=== PATIENT | female | born 1955 | race Caucasian/White ===

== ENCOUNTER 2016-11-12 12:06 | Inpatient (IN) | payer OTHER ==
--- NOTE | 2016-11-12 13:18 | PDOC ---
History of Present Illness - General History Source: Patient - History of Present Illness Occurred: reports: other Lower Extremity Pain Location: left: foot <SlovenianAj - Last Filed: 11/12/16 15:24> <Anthony Swan - Last Filed: 11/12/16 20:26> - General Chief Complaint: Wound Infection Stated Complaint: POST-OP/ LT FOOT COMPLICATIONS Time Seen by Provider: 11/12/16 12:48 Past History - Past Medical History CVA: Yes (No residual) Diabetes: Yes HTN: Yes Hypercholesterolemia: Yes Liver Disease: Yes (Fatty liver) Thyroid Disease: Yes - Surgical History Appendectomy: Yes - Immunization History Immunization Up to Date: Yes - Psycho/Social/Smoking Cessation Hx Anxiety: No Suicidal Ideation: No Smoking Status: No Smoking History: Never smoked Have you smoked in the past 12 months: No Number of Cigarettes Smoked Daily: 0 Cigars Per Day: 0 Hx Alcohol Use: No Drug/Substance Use Hx: No Substance Use Type: None <Aj Flores - Last Filed: 11/12/16 15:24> <Anthony Swan - Last Filed: 11/12/16 20:26> - Past Medical History Allergies/Adverse Reactions: Allergies Allergy/AdvReac Type Severity Reaction Status Date / Time No Known Drug Allergies Allergy Verified 03/18/16 17:12 Home Medications: Ambulatory Orders Allopurinol 300 mg PO DAILY 01/10/16 Aspirin [Aspirin EC] 81 mg PO DAILY 01/10/16 Furosemide [Lasix -] 20 mg PO DAILY 01/10/16 Lisinopril 5 mg PO DAILY 01/10/16 Metoprolol Tartrate 12.5 mg PO BID 01/10/16 Multivitamins [Multivit ([facility] Formul[facility])] 1 tab PO DAILY 01/10/16 Pravastatin Sodium 20 mg PO DAILY 01/10/16 Oxycodone HCl/Acetaminophen [Percocet 10-325 mg Tablet] 1 each PO QID #20 tablet MDD 4 03/18/16 Acetaminophen [Tylenol .Regular Strength -] 650 mg PO Q6H PRN #0 tablet Docusate Sodium [Colace -] 100 mg PO BID PRN #0 capsule 03/28/16 Gabapentin [Neurontin -] 300 mg PO TID capsule 03/28/16 Insulin Sliding Scale [Novolog Vial Sliding Scale -] 1 vial SQ TIDAC #0 units Levothyroxine [Synthroid -] 100 mcg PO DAILY@0700 tablet 03/28/16 Naproxen [Naprosyn -] 500 mg PO BID tablet 03/28/16 Pantoprazole Sodium [Protonix -] 40 mg PO DAILY tablet.ec 03/28/16 Insulin (Levemir) [Levemir Vial] 25 units SQ ACBK 11/12/16 Review of Systems - Review of Systems Constitutional: No: Chills, Fever, Malaise Integumentary: Yes: Erythema <Aj Floers - Last Filed: 11/12/16 15:24> *Physical Exam - Vital Signs Last Vital Signs Temp Pulse Resp BP Pulse Ox 98.3 F 78 18 116/65 98 11/12/16 12:13 11/12/16 12:13 11/12/16 12:13 11/12/16 12:13 11/12/16 12:13 - Physical Exam General Appearance: Yes: Appropriately Dressed. No: Apparent Distress HEENT: positive: Normal Voice Neck: positive: Supple Respiratory/Chest: negative: Respiratory Distress Extremity: positive: Other (S/po amputation of L 2nd-4th toes w/ ulcer located at site of prior amputation w/surrounding erythema extending into dorsum of foot , hot and tender, no active discharge, pedal pulses intact) Integumentary: positive: Dry, Warm Neurologic: positive: Fully Oriented, Alert, Normal Mood/Affect <jA Flores - Last Filed: 11/12/16 15:24> - Vital Signs Last Vital Signs Temp Pulse Resp BP Pulse Ox 97.8 F 79 20 127/57 97 11/12/16 18:49 11/12/16 18:49 11/12/16 18:49 11/12/16 18:49 11/12/16 17:23 <Anthony Swan - Last Filed: 11/12/16 20:26> ED Treatment Course - LABORATORY CBC & Chemistry Diagram: 11/12/16 13:15 11/12/16 13:15 <Aj Flores - Last Filed: 11/12/16 15:24> - LABORATORY CBC & Chemistry Diagram: 11/12/16 13:15 11/12/16 13:15 - ADDITIONAL ORDERS Additional order review: Laboratory Results 11/12/16 11/12/16 13:21 13:15 Sodium 141 Potassium 4.0 Chloride 104 Carbon Dioxide 27 Anion Gap 10 BUN 30 H D Creatinine 1.5 H D Creat Clearance w eGFR 35.54 Random Glucose 150 H D Calcium 9.2 Total Bilirubin 0.3 D AST 17 D ALT 23 D Alkaline Phosphatase 84 D Total Protein 7.4 Albumin 3.4 D Urine Color Yellow Urine Appearance Slcloudy Urine pH 5.0 Ur Specific [place]lord 1.013 Urine Protein Negative Urine Glucose (UA) Negative Urine Ketones Negative Urine Blood Negative Urine Nitrite Negative Urine Bilirubin Negative Urine Urobilinogen Negative Ur Leukocyte Esterase Trace H Urine RBC 2 Urine WBC 3 Ur Epithelial Cells Few Hyaline Casts 46 Urine Mucus Rare 11/12/16 13:15 RBC 4.58 MCV 66.9 L MCHC 30.5 L RDW 15.6 D MPV 8.7 D Neutrophils % 53.5 Lymphocytes % 36.4 Monocytes % 7.5 D Eosinophils % 2.0 D Basophils % 0.6 - Medications Given in the ED: ED Medications Discontinued Medications Generic Name Dose Route Start Last Admin Trade Name Freq PRN Reason Stop Dose Admin Clindamycin Phosphate 50 mls @ 100 mls/hr 11/12/16 13:21 11/12/16 13:50 Cleocin 600 Mg Premix Ivpb - IVPB 11/12/16 13:50 100 mls/hr ONCE ONE Administration <Anthony Swan - Last Filed: 11/12/16 20:26> Medical Decision Making - Medical Decision Making 11/12/16 13:15 61-year-old female history of hypertension, hypothyroid, DM, septic joint, MRSA , multiple L toe amputations, p/w pain and erythema to left foot near site of previous amputations that has been ongoing for 1 month. Patient states she attempted to see Dr. Butterfield in office but due to insurance issues, was not able to be seen. Denies any fever or chills. Patient states approximately 2 months ago while visiting [place]. Had an infection to left foot and was treated with antibiotics. See exam L foot ulcer/cellulitis No f/c Well evelin and stable in ED Pedal pulses intact -IV abx -labs -admit 11/12/16 13:20 11/12/16 14:47 11/12/16 14:47 Osteo on x-ray. Case discussed with Dr. Knowles who is recommending Dr. Watts of ID and Dr. Butterfield of vascular be consulted. Dr. Lira of ID is currently in ED evaluating patient and states he will place orders 11/12/16 15:24 <Aj Flores - Last Filed: 11/12/16 15:24> - Medical Decision Making 11/12/16 20:25 The patient was seen and evaluated in conjunction with GUILLE Mcallister under my direct supervision, ancillary studies were reviewed. I agree with the plan as outlined by GUILLE Flores . <Anthony Swan - Last Filed: 11/12/16 20:26> *DC/Admit/Observation/Transfer - Discharge Dispostion Admit: Yes <Aj Flores - Last Filed: 11/12/16 15:24> <Anthony Swan - Last Filed: 11/12/16 20:26> Diagnosis at time of Disposition: Cellulitis Qualifiers: Site of cellulitis: extremity Site of cellulitis of extremity: lower extremity Laterality: left Qualified Code(s): L03.116 - Cellulitis of left lower limb Osteomyelitis Qualifiers: Osteomyelitis type: other acute Osteomyelitis location: foot Laterality: left Qualified Code(s): M86.172 - Other acute osteomyelitis, left ankle and foot - Discharge Dispostion Condition at time of disposition: Fair - Referrals
[2016-11-12] MEDS ORDERED: CLINDAMYCIN 600MG PREMIX IVPB 50 ML IVPB ONE ×2 (13:21→13:28)
[2016-11-12 13:38] LABS: BASOPHIL 0.6 % (0-2.0); MCH 20.4 pg (25.7-33.7); MCHC 30.5 g/dl (32.0-36.0); MEAN CELL VOLUME 66.9 fl (80-96); MEAN PLT VOLUME 8.7 fl (7.5-11.1); NEUTROPHILS 53.5 % (42.8-82.8); PLATELET COUNT 283 K/MM3 (134-434); RDW 15.6 % (11.6-15.6); WHITE BLOOD COUNT 6.8 K/mm3 (4.0-10.0)
[2016-11-12 13:55] LABS: ALBUMIN 3.4 g/dl (3.4-5.0); BILIRUBIN,TOTAL 0.3 mg/dL (0.2-1.0); CALCIUM 9.2 mg/dL (8.5-10.1); CREATININE 1.5 mg/dL (0.55-1.02); TOT PROT 7.4 g/dl (6.4-8.2)
--- NOTE | 2016-11-12 14:34 | PDOC ---
*Physical Exam - Vital Signs Last Vital Signs Temp Pulse Resp BP Pulse Ox 98.3 F 78 18 116/65 98 11/12/16 12:13 11/12/16 12:13 11/12/16 12:13 11/12/16 12:13 11/12/16 12:13 ED Treatment Course - LABORATORY CBC & Chemistry Diagram: 11/12/16 13:15 11/12/16 13:15 - ADDITIONAL ORDERS Additional order review: Laboratory Results 11/12/16 13:15 Sodium 141 Potassium 4.0 Chloride 104 Carbon Dioxide 27 Anion Gap 10 BUN 30 H D Creatinine 1.5 H D Creat Clearance w eGFR 35.54 Random Glucose 150 H D Calcium 9.2 Total Bilirubin 0.3 D AST 17 D ALT 23 D Alkaline Phosphatase 84 D Total Protein 7.4 Albumin 3.4 D 11/12/16 13:15 RBC 4.58 MCV 66.9 L MCHC 30.5 L RDW 15.6 D MPV 8.7 D Neutrophils % 53.5 Lymphocytes % 36.4 Monocytes % 7.5 D Eosinophils % 2.0 D Basophils % 0.6 - RADIOLOGY Radiology Studies Ordered: Category Date Time Status CHEST - PA [RAD] Stat Radiology 11/12/16 13:14 Completed FOOT-LEFT [RAD] Stat Radiology 11/12/16 13:13 Taken Medical Decision Making - Medical Decision Making 11/12/16 14:36 Osteo on Xray. Case discussed with Dr. Knowles who is recommending Dr. Watts of ID and Dr. Butterfield of vascular be consulted. *DC/Admit/Observation/Transfer Diagnosis at time of Disposition: Cellulitis Qualifiers: Site of cellulitis: extremity Site of cellulitis of extremity: lower extremity Laterality: left Qualified Code(s): L03.116 - Cellulitis of left lower limb - Discharge Dispostion Condition at time of disposition: Fair Admit: Yes Decision to Admit order Date/Time: Decision to Admit Order Category Date Time Status Decision to Admit to Hospital Routine Admission 11/12/16 14:30 Active - Referrals Referrals: Annelise Knowles MD [Primary Care Provider] - - Patient Instructions - Post Discharge Activity
[2016-11-12] MEDS: PIPERACILLIN/TAZOB 3.375 GM 50 ML IVPB SCH ×2 (15:35→18:35)
--- NOTE | 2016-11-12 15:35 | PN ---
Progress Note (short form) - Note Progress Note: ID Consult dictated Cellulitis L foot Possible osteomyelitis Hx MRSA await c/s ESR CRP Surgical evaluation Empiric zosyn/ vancomycin
[2016-11-12 15:36] LABS: URINE APPEARANCE SLCLOUDY; URINE BILIRUBIN NEGATIVE (NEGATIVE); URINE BLOOD NEGATIVE (NEGATIVE); URINE COLOR YELLOW; URINE GLUCOSE (UA) NEGATIVE (NEGATIVE); URINE KETONE NEGATIVE (NEGATIVE); URINE NITRITE NEGATIVE (NEGATIVE); URINE PROTEIN NEGATIVE (NEGATIVE); URINE UROBILINOGEN NEGATIVE E.U./dl (0.2-1.0)
[2016-11-12 15:37] LABS: URINE LEUK ESTERASE TRACE (NEGATIVE)
[2016-11-12] MEDS ORDERED: VANCOMYCIN 1 GRAM (PRE-DOCKED) 250 ML IVPB ONE (15:42)
[2016-11-12] MEDS ORDERED: PIPERACILLIN/TAZOB 3.375 GM 50 ML IVPB ONE (15:43)
[2016-11-12 15:53] LABS: URINE HYALINE CAST 46 /lpf; URINE MUCUS RARE; URINE RBC 2 /hpf (0-3); URINE WBC 3 /hpf (3-5)
[2016-11-12] MEDS: VANCOMYCIN 1 GRAM (PRE-DOCKED) 250 ML IVPB SCH (16:05)
[2016-11-12 16:31] LABS: ANISOCYTOSIS 1+; HYPOCHROMIA 2+; MICROCYTOSIS 1+; PLATELET ESTIMATE ADEQUATE (NORMAL)
[2016-11-12] MEDS: INSULIN SLIDING SCALE (NOVOLOG) 1 VIAL SQ SCH ×2 (18:00→22:43)
[2016-11-12 18:14] VITALS: BMI 35.2
--- NOTE | 2016-11-12 18:26 | CONS ---
DATE OF CONSULTATION: DATE OF DICTATION: 11/12/2016 INFECTIOUS DISEASE CONSULTATION HISTORY OF PRESENT ILLNESS: The patient is a 61-year-old female evaluated for cellulitis of the left foot, possible osteomyelitis. The patient was seen in the emergency room, history was obtained via slat pickler, as she is Armenian speaking. According to the patient she has had worsening swelling, erythema and pain the left foot for the past several weeks. She had been in [place] in August of 2016 at which time she had sought medical attention was given an oral antibiotic. She now presents with worsening swelling and redness of her left foot. She denies any recent antibiotic therapy. No complaints of fever or chills. The patient was evaluated by our service in February of 2016 at which time she had positive blood cultures for MRSA and what was felt to be a septic arthritis of her right shoulder. She received a long course of IV antibiotic therapy. Previous wound cultures of the left foot have grown pseudomonas and staphylococcus aureus. PAST MEDICAL HISTORY: Positive for diabetes mellitus, diabetic foot ulcers, hypertension, hyperlipidemia, diabetic nephropathy, gouty arthritis. PAST SURGICAL HISTORY: Status post appendectomy. Status post amputation of 2nd, 3rd, and 4th toes of the left foot. ALLERGIES: No known allergies. SOCIAL HISTORY: Lives at home with family members. Nonsmoker. Nondrinker. Recent travel to [place]. SYSTEMS REVIEW: Neurologic: No loss of consciousness, seizure activity, or focal weakness. Cardiac: Negative chest pain or palpitations. Respiratory: Negative cough or sputum production. Gastrointestinal: Negative vomiting or diarrhea. Genitourinary: Negative for urinary tract infection. LABORATORY DATA: White count 6.8, hematocrit 30.6, platelet count 283. BUN 30, creatinine 1.5. PHYSICAL EXAMINATION: General: She is awake and alert. She is not acutely toxic appearing. Vital signs: Temperature 98.3, blood pressure 116/65, pulse 78 regular, respirations 18 per minute. HEENT: Sclerae anicteric. Cardiovascular: Heart sounds S1, S2. Respiratory: Lungs clear. Abdomen: Soft. No tenderness elicited. No mass, rebound, or rigidity. Extremities: Positive for left foot swelling. She is status post amputation of the left 2nd, 3rd, and 4th toes. There is erythema present over the dorsal aspect of the foot, no purulent drainage is noted. No crepitus, fluctuance. No lymphangitic streaking. IMPRESSION: 1. Cellulitis of the left foot. 2. Possible underlying osteomyelitis. 3. History of methicillin resistant Staphylococcus aureus. Await culture results. Obtain sedimentation rate, C-reactive protein. Surgical evaluation. Empiric antibiotic coverage in this patient with a history of MRSA and pseudomonas with vancomycin and Zosyn. Will follow. Thank you for the kind referral. AMBER JUAN M.D. DOUG/[id number]
[2016-11-12] MEDS: DOCUSATE SODIUM 100 MG CAPSULE (FP) PO SCH (22:27)
[2016-11-12] MEDS: METOPROLOL TARTRATE 25 MG TABLET (FP) PO SCH (22:30)
[2016-11-12] MEDS: GABAPENTIN 300 MG CAPSULE (FP) PO SCH (22:30)
[2016-11-12] MEDS: HEPARIN NA (PORCINE) 5,000 UNITS/ML 1ML VIAL SQ SCH (22:31)
[2016-11-12] MEDS: INSULIN DETEMIR 100 UNITS/ML MDV SQ SCH (22:42)
[2016-11-13] MEDS: PIPERACILLIN/TAZOB 3.375 GM 50 ML IVPB SCH ×3 (02:12→17:51)
[2016-11-13] MEDS: VANCOMYCIN 1 GRAM (PRE-DOCKED) 250 ML IVPB SCH ×2 (03:53→15:15)
[2016-11-13] MEDS: GABAPENTIN 300 MG CAPSULE (FP) PO SCH ×3 (06:32→22:38)
[2016-11-13] MEDS: LEVOTHYROXINE NA 100 MCG TABLET (FP) PO SCH (06:32)
[2016-11-13] MEDS: ATORVASTATIN CA 10 MG TABLET (FP) PO SCH (06:32)
[2016-11-13] MEDS: INSULIN SLIDING SCALE (NOVOLOG) 1 VIAL SQ SCH ×4 (06:41→22:42)
[2016-11-13 10:00] LABS: CHOLESTEROL 162 mg/dL (50-200); LDL CHOLESTEROL (ONLY SJRH) 93 mg/dL (5-100)
[2016-11-13] MEDS: ALLOPURINOL 300 MG TABLET (FP) PO SCH (10:11)
[2016-11-13] MEDS: METOPROLOL TARTRATE 25 MG TABLET (FP) PO SCH ×2 (10:11→22:38)
[2016-11-13] MEDS: FUROSEMIDE 20 MG TABLET (FP) PO SCH (10:11)
[2016-11-13] MEDS: LISINOPRIL 10 MG TABLET (FP) PO SCH (10:11)
[2016-11-13] MEDS: PANTOPRAZOLE 40 MG TABLET (FP) PO SCH (10:11)
[2016-11-13] MEDS: ASPIRIN 81 MG CHEWABLE TABLETS PO SCH (10:12)
[2016-11-13] MEDS: HEPARIN NA (PORCINE) 5,000 UNITS/ML 1ML VIAL SQ SCH ×2 (10:12→22:38)
[2016-11-13 10:18] LABS: MCH 20.3 pg (25.7-33.7); MCHC 30.6 g/dl (32.0-36.0); MEAN CELL VOLUME 66.3 fl (80-96); MEAN PLT VOLUME 8.9 fl (7.5-11.1); PLATELET COUNT 311 K/MM3 (134-434); WHITE BLOOD COUNT 5.3 K/mm3 (4.0-10.0)
--- NOTE | 2016-11-13 10:32 | PN ---
Progress Note (short form) - Note Progress Note: Vascular surgery Left foot ulcer. Clean, pink, probes to bone. Palpable DP pulse. Has not come to wound care clinic for 6 months, since she was in [place]. Pt will probably need MRI, to rule out osteo. Will place santyl on the wound. Bernard Butterfield DO
[2016-11-13] MEDS: oxyCODONE HCL 5 MG TABLET PO PRN (10:51)
--- NOTE | 2016-11-13 13:21 | PN ---
Progress Note, Physician History of Present Illness: Awake, alert Non toxic appearing Afebrile Vascular evaluation noted - Current Medication List Current Medications: Active Medications Acetaminophen (Tylenol -) 650 mg PO Q6H PRN PRN Reason: FEVER OR PAIN Allopurinol (Zyloprim -) 300 mg PO DAILY [facility] Last Admin: 11/13/16 10:11 Dose: 300 mg Aspirin (Asa -) 81 mg PO DAILY [facility] Last Admin: 11/13/16 10:12 Dose: 81 mg Atorvastatin Calcium (Lipitor -) 10 mg PO AM [facility] Last Admin: 11/13/16 06:32 Dose: 10 mg Collagenase (Santyl -) 1 applic TP DAILY [facility] Docusate Sodium (Colace -) 300 mg PO HS [facility] Last Admin: 11/12/16 22:27 Dose: 300 mg Furosemide (Lasix -) 20 mg PO DAILY [facility] Last Admin: 11/13/16 10:11 Dose: 20 mg Gabapentin (Neurontin -) 300 mg PO TID [facility] Last Admin: 11/13/16 06:32 Dose: 300 mg Heparin Sodium (Porcine) (Heparin -) 5,000 unit SQ BID [facility] Last Admin: 11/13/16 10:12 Dose: 5,000 unit Vancomycin HCl (Vancomycin (Pre-Docked)) 250 mls @ 166.667 mls/hr IVPB Q12H [facility] Last Admin: 11/13/16 03:53 Dose: 166.667 mls/hr Piperacillin Sod/Tazobactam Sod (Zosyn 3.375gm Ivpb (Pre-Docked)) 50 mls @ 100 mls/hr IVPB Q8H-IV [facility] PRN Reason: Protocol Last Admin: 11/13/16 10:12 Dose: 100 mls/hr Insulin Aspart (Novolog Vial Sliding Scale -) 1 vial SQ ACHS [facility] PRN Reason: Protocol Last Admin: 11/13/16 11:06 Dose: 2 units Insulin Detemir (Levemir Vial) 25 units SQ HS [facility] Last Admin: 11/12/16 22:42 Dose: 25 units Levothyroxine Sodium (Synthroid -) 100 mcg PO DAILY@0700 [facility] Last Admin: 11/13/16 06:32 Dose: 100 mcg Lisinopril (Prinivil) 10 mg PO DAILY [facility] Last Admin: 11/13/16 10:11 Dose: 10 mg Metoprolol Tartrate (Lopressor -) 12.5 mg PO BID [facility] Last Admin: 11/13/16 10:11 Dose: 12.5 mg Oxycodone HCl (Roxicodone -) 5 mg PO Q6H PRN PRN Reason: PAIN Last Admin: 11/13/16 10:51 Dose: 5 mg Pantoprazole Sodium (Protonix -) 40 mg PO DAILY [facility] Last Admin: 11/13/16 10:11 Dose: 40 mg - Objective Vital Signs: Vital Signs Temperature 97.8 F 11/13/16 08:13 Pulse Rate 69 11/13/16 08:13 Respiratory Rate 20 11/13/16 08:13 Blood Pressure 104/60 11/13/16 08:13 O2 Sat by Pulse Oximetry (%) 97 11/13/16 09:00 Constitutional: Yes: No Distress Eyes: Yes: Conjunctiva Clear Cardiovascular: Yes: Regular Rate and Rhythm, S1, S2 Respiratory: Yes: CTA Bilaterally Gastrointestinal: Yes: Normal Bowel Sounds, Soft. No: Tenderness Extremities: Yes: Other (decreased erythema, foot + ulceration which probes to bone No expressible pus) Labs: CBC, BMP 11/13/16 07:30 Assessment/Plan Cellulitis/ infected foot ulcer/ probable osteomyelitis Hx MRSA bacteremia/ septic arthritis of shoulder Await cultures Continue empiric zosyn/ vancomycin
[2016-11-13] MEDS: COLLAGENASE CLOSTRIDIUM HIST. 30 GRAMS TUBE TP SCH (14:54)
--- NOTE | 2016-11-13 15:22 | HP ---
Admitting History and Physical - Primary Care Physician PCP: Annelise Knowles - Admission Chief Complaint: LEFT LOWER EXTREMITY INFECTION History of Present Illness: HISTORY OF DMII, DIABETIC NEUROPATHY, DIABETIC RETINOPATHY, HTN, CHRONIC WOUND INFECTION HAS NOT BEEN TO WOUND CENTER FOR OVER 6 MONTHS. LEFT FOOT IS PAINFULA AND RED WITH DISCHARGE History Source: Patient - Past Medical History Cardiovascular: Yes: HTN ...: No Rheumatology: Yes: Gout Endocrine: Yes: Diabetes Mellitus - Smoking History Smoking history: Never smoked Have you smoked in the past 12 months: No Aproximately how many cigarettes per day: 0 - Alcohol/Substance Use Hx Alcohol Use: No Home Medications - Allergies Allergies/Adverse Reactions: Allergies Allergy/AdvReac Type Severity Reaction Status Date / Time No Known Drug Allergies Allergy Verified 03/18/16 17:12 - Home Medications Home Medications: Ambulatory Orders Allopurinol 300 mg PO DAILY 01/10/16 Aspirin [Aspirin EC] 81 mg PO DAILY 01/10/16 Furosemide [Lasix -] 20 mg PO DAILY 01/10/16 Lisinopril 5 mg PO DAILY 01/10/16 Metoprolol Tartrate 12.5 mg PO BID 01/10/16 Multivitamins [Multivit ([facility] Formul[facility])] 1 tab PO DAILY 01/10/16 Pravastatin Sodium 20 mg PO DAILY 01/10/16 Oxycodone HCl/Acetaminophen [Percocet 10-325 mg Tablet] 1 each PO QID #20 tablet MDD 4 03/18/16 Acetaminophen [Tylenol .Regular Strength -] 650 mg PO Q6H PRN #0 tablet Docusate Sodium [Colace -] 100 mg PO BID PRN #0 capsule 03/28/16 Gabapentin [Neurontin -] 300 mg PO TID capsule 03/28/16 Insulin Sliding Scale [Novolog Vial Sliding Scale -] 1 vial SQ TIDAC #0 units Levothyroxine [Synthroid -] 100 mcg PO DAILY@0700 tablet 03/28/16 Naproxen [Naprosyn -] 500 mg PO BID tablet 03/28/16 Pantoprazole Sodium [Protonix -] 40 mg PO DAILY tablet.ec 03/28/16 Insulin (Levemir) [Levemir Vial] 25 units SQ ACBK 11/12/16 Review of Systems - Review of Systems Constitutional: reports: Weakness Eyes: reports: No Symptoms HENT: reports: No Symptoms Neck: reports: No Symptoms Cardiovascular: reports: No Symptoms Respiratory: reports: No Symptoms Gastrointestinal: reports: No Symptoms Genitourinary: reports: No Symptoms Musculoskeletal: reports: Decreased ROM, Joint Swelling, Muscle Pain Integumentary: reports: Erythema, Wound Neurological: reports: Pre-Existing Deficit, Other Endocrine: reports: Other Hematology/Lymphatic: reports: No Symptoms Psychiatric: reports: No Symptoms Physical Examination Vital Signs: Vital Signs Temperature 97.8 F 11/13/16 15:10 Pulse Rate 69 11/13/16 15:10 Respiratory Rate 18 11/13/16 15:10 Blood Pressure 118/65 11/13/16 15:10 O2 Sat by Pulse Oximetry (%) 97 11/13/16 09:00 Constitutional: Yes: Mild Distress Eyes: Yes: WNL HENT: Yes: WNL Neck: Yes: WNL Cardiovascular: Yes: WNL Respiratory: Yes: WNL Gastrointestinal: Yes: WNL Renal/: Yes: WNL Musculoskeletal: Yes: Joint Swelling, Muscle Weakness Extremities: Yes: Amputation, Deformity, Erythema Edema: Yes Edema: LLE: Trace, RLE: Trace Peripheral Pulses WNL: Yes Integumentary: Yes: Erythema, Pressure Ulcer, Skin Tear, Venous Stasis Changes Wound/Incision: Yes: Dressing Dry and Intact, Unapproximated Neurological: Yes: Pre-Existing Deficit ...Motor Strength: LLE Psychiatric: Yes: WNL Labs: CBC, BMP 11/13/16 07:30 Problem List - Problems (1) Cellulitis Code(s): L03.90 - CELLULITIS, UNSPECIFIED Qualifiers: Site of cellulitis: extremity Site of cellulitis of extremity: lower extremity Laterality: left Qualified Code(s): L03.116 - Cellulitis of left lower limb (2) Osteomyelitis Code(s): M86.9 - OSTEOMYELITIS, UNSPECIFIED Qualifiers: Osteomyelitis type: other acute Osteomyelitis location: foot Laterality: left Qualified Code(s): M86.172 - Other acute osteomyelitis, left ankle and foot (3) DM2 (diabetes mellitus, type 2) Code(s): E11.9 - TYPE 2 DIABETES MELLITUS WITHOUT COMPLICATIONS Qualifiers: Diabetes mellitus complication status: with neurologic complications Diabetes mellitus complication detail: with polyneuropathy Diabetes mellitus fci insulin use: with fci use Qualified Code(s): E11.42 - Type 2 diabetes mellitus with diabetic polyneuropathy; Z79.4 - care home (current) use of insulin (4) HTN (hypertension) Code(s): I10 - ESSENTIAL (PRIMARY) HYPERTENSION Assessment/Plan IV ABX , ID CONSULT VASC SX EVAL MRI FOOT ESR HIGH TIGHT DIABETIC CONTROL DVT PROPHYLAXIS
[2016-11-13] MEDS: DOCUSATE SODIUM 100 MG CAPSULE (FP) PO SCH (22:37)
[2016-11-13] MEDS: INSULIN DETEMIR 100 UNITS/ML MDV SQ SCH (22:41)
[2016-11-14] MEDS: PIPERACILLIN/TAZOB 3.375 GM 50 ML IVPB SCH ×3 (02:03→17:33)
[2016-11-14] MEDS: VANCOMYCIN 1 GRAM (PRE-DOCKED) 250 ML IVPB SCH ×2 (03:06→15:56)
[2016-11-14] MEDS: GABAPENTIN 300 MG CAPSULE (FP) PO SCH ×3 (06:50→22:22)
[2016-11-14] MEDS: ATORVASTATIN CA 10 MG TABLET (FP) PO SCH (06:50)
[2016-11-14] MEDS: LEVOTHYROXINE NA 100 MCG TABLET (FP) PO SCH (06:50)
[2016-11-14] MEDS: INSULIN SLIDING SCALE (NOVOLOG) 1 VIAL SQ SCH ×4 (06:51→22:19)
[2016-11-14] MEDS: HEPARIN NA (PORCINE) 5,000 UNITS/ML 1ML VIAL SQ SCH ×2 (10:20→22:22)
[2016-11-14] MEDS: METOPROLOL TARTRATE 25 MG TABLET (FP) PO SCH ×2 (10:20→22:22)
[2016-11-14] MEDS: FUROSEMIDE 20 MG TABLET (FP) PO SCH (10:20)
[2016-11-14] MEDS: ALLOPURINOL 300 MG TABLET (FP) PO SCH (10:21)
[2016-11-14] MEDS: LISINOPRIL 10 MG TABLET (FP) PO SCH (10:21)
[2016-11-14] MEDS: PANTOPRAZOLE 40 MG TABLET (FP) PO SCH (10:21)
[2016-11-14] MEDS: ASPIRIN 81 MG CHEWABLE TABLETS PO SCH (10:22)
[2016-11-14] MEDS: COLLAGENASE CLOSTRIDIUM HIST. 30 GRAMS TUBE TP SCH (10:26)
--- NOTE | 2016-11-14 10:37 | PN ---
Progress Note, Physician Chief Complaint: AWAKE ALERT NOTIFIED HER OF + MRI LOWER LEFT LEG WITH ACUTE OSTEOMYELITIS - Current Medication List Current Medications: Active Medications Acetaminophen (Tylenol -) 650 mg PO Q6H PRN PRN Reason: FEVER OR PAIN Allopurinol (Zyloprim -) 300 mg PO DAILY [facility] Last Admin: 11/14/16 10:21 Dose: 300 mg Aspirin (Asa -) 81 mg PO DAILY [facility] Last Admin: 11/14/16 10:22 Dose: 81 mg Atorvastatin Calcium (Lipitor -) 10 mg PO AM [facility] Last Admin: 11/14/16 06:50 Dose: 10 mg Collagenase (Santyl -) 1 applic TP DAILY [facility] Last Admin: 11/14/16 10:26 Dose: 1 grams Docusate Sodium (Colace -) 300 mg PO HS [facility] Last Admin: 11/13/16 22:37 Dose: 300 mg Furosemide (Lasix -) 20 mg PO DAILY [facility] Last Admin: 11/14/16 10:20 Dose: 20 mg Gabapentin (Neurontin -) 300 mg PO TID [facility] Last Admin: 11/14/16 06:50 Dose: 300 mg Heparin Sodium (Porcine) (Heparin -) 5,000 unit SQ BID [facility] Last Admin: 11/14/16 10:20 Dose: 5,000 unit Vancomycin HCl (Vancomycin (Pre-Docked)) 250 mls @ 166.667 mls/hr IVPB Q12H [facility] Last Admin: 11/14/16 03:06 Dose: 166.667 mls/hr Piperacillin Sod/Tazobactam Sod (Zosyn 3.375gm Ivpb (Pre-Docked)) 50 mls @ 100 mls/hr IVPB Q8H-IV [facility] PRN Reason: Protocol Last Admin: 11/14/16 10:21 Dose: 100 mls/hr Insulin Aspart (Novolog Vial Sliding Scale -) 1 vial SQ ACHS [facility] PRN Reason: Protocol Last Admin: 11/14/16 06:51 Dose: 4 units Insulin Detemir (Levemir Vial) 25 units SQ HS [facility] Last Admin: 11/13/16 22:41 Dose: 25 units Levothyroxine Sodium (Synthroid -) 100 mcg PO DAILY@0700 [facility] Last Admin: 11/14/16 06:50 Dose: 100 mcg Metoprolol Tartrate (Lopressor -) 12.5 mg PO BID [facility] Last Admin: 11/14/16 10:20 Dose: Not Given Oxycodone HCl (Roxicodone -) 5 mg PO Q6H PRN PRN Reason: PAIN Last Admin: 11/13/16 10:51 Dose: 5 mg Pantoprazole Sodium (Protonix -) 40 mg PO DAILY [facility] Last Admin: 11/14/16 10:21 Dose: 40 mg - Objective Vital Signs: Vital Signs Temperature 97.6 F 11/14/16 06:00 Pulse Rate 74 11/14/16 06:00 Respiratory Rate 20 11/14/16 06:00 Blood Pressure 99/61 11/14/16 06:00 O2 Sat by Pulse Oximetry (%) 97 11/13/16 21:00 Constitutional: Yes: Mild Distress Eyes: Yes: WNL HENT: Yes: WNL Neck: Yes: WNL Cardiovascular: Yes: WNL Respiratory: Yes: WNL Gastrointestinal: Yes: WNL Genitourinary: Yes: WNL Musculoskeletal: Yes: Joint Swelling, Muscle Pain Extremities: Yes: Deformity Edema: Yes Edema: LLE: Trace, RLE: Trace Peripheral Pulses WNL: Yes Integumentary: Yes: Pressure Ulcer, Venous Stasis Changes, Other Wound/Incision: Yes: Dressing Dry and Intact, Unapproximated Neurological: Yes: Numbness, Pre-Existing Deficit ...Motor Strength: LLE Labs: CBC, BMP 11/13/16 07:30 Problem List - Problems (1) Cellulitis Code(s): L03.90 - CELLULITIS, UNSPECIFIED Qualifiers: Site of cellulitis: extremity Site of cellulitis of extremity: lower extremity Laterality: left Qualified Code(s): L03.116 - Cellulitis of left lower limb (2) Osteomyelitis Code(s): M86.9 - OSTEOMYELITIS, UNSPECIFIED Qualifiers: Osteomyelitis type: other acute Osteomyelitis location: foot Laterality: left Qualified Code(s): M86.172 - Other acute osteomyelitis, left ankle and foot (3) DM2 (diabetes mellitus, type 2) Code(s): E11.9 - TYPE 2 DIABETES MELLITUS WITHOUT COMPLICATIONS Qualifiers: Diabetes mellitus complication status: with neurologic complications Diabetes mellitus complication detail: with polyneuropathy Diabetes mellitus penitentiary insulin use: with penitentiary use Qualified Code(s): E11.42 - Type 2 diabetes mellitus with diabetic polyneuropathy; Z79.4 - jail (current) use of insulin (4) HTN (hypertension) Code(s): I10 - ESSENTIAL (PRIMARY) HYPERTENSION Assessment/Plan MRI POSITIVE OSTEOMYELITIS IV ABX PER ID MAY NEED PICC LINE WITH LONG-TERM ABX DVT PROPHYLAXIS OOB TO CHAIR TIGHT GLYCEMIC CONTROL CHANGE LISINOPRIL FROM 10MG TO 2.5MG LOW BP
--- NOTE | 2016-11-14 11:01 | PN ---
Progress Note, Physician History of Present Illness: No c/o foot pain No c/o fever/ chills MRI c/w osteomyelitis - Current Medication List Current Medications: Active Medications Acetaminophen (Tylenol -) 650 mg PO Q6H PRN PRN Reason: FEVER OR PAIN Allopurinol (Zyloprim -) 300 mg PO DAILY [facility] Last Admin: 11/14/16 10:21 Dose: 300 mg Aspirin (Asa -) 81 mg PO DAILY [facility] Last Admin: 11/14/16 10:22 Dose: 81 mg Atorvastatin Calcium (Lipitor -) 10 mg PO AM [facility] Last Admin: 11/14/16 06:50 Dose: 10 mg Collagenase (Santyl -) 1 applic TP DAILY [facility] Last Admin: 11/14/16 10:26 Dose: 1 grams Docusate Sodium (Colace -) 300 mg PO HS [facility] Last Admin: 11/13/16 22:37 Dose: 300 mg Furosemide (Lasix -) 20 mg PO DAILY [facility] Last Admin: 11/14/16 10:20 Dose: 20 mg Gabapentin (Neurontin -) 300 mg PO TID [facility] Last Admin: 11/14/16 06:50 Dose: 300 mg Heparin Sodium (Porcine) (Heparin -) 5,000 unit SQ BID [facility] Last Admin: 11/14/16 10:20 Dose: 5,000 unit Vancomycin HCl (Vancomycin (Pre-Docked)) 250 mls @ 166.667 mls/hr IVPB Q12H [facility] Last Admin: 11/14/16 03:06 Dose: 166.667 mls/hr Piperacillin Sod/Tazobactam Sod (Zosyn 3.375gm Ivpb (Pre-Docked)) 50 mls @ 100 mls/hr IVPB Q8H-IV [facility] PRN Reason: Protocol Last Admin: 11/14/16 10:21 Dose: 100 mls/hr Insulin Aspart (Novolog Vial Sliding Scale -) 1 vial SQ ACHS [facility] PRN Reason: Protocol Last Admin: 11/14/16 06:51 Dose: 4 units Insulin Detemir (Levemir Vial) 25 units SQ HS [facility] Last Admin: 11/13/16 22:41 Dose: 25 units Levothyroxine Sodium (Synthroid -) 100 mcg PO DAILY@0700 [facility] Last Admin: 11/14/16 06:50 Dose: 100 mcg Lisinopril (Prinivil) 2.5 mg PO DAILY [facility] Metoprolol Tartrate (Lopressor -) 12.5 mg PO BID [facility] Last Admin: 11/14/16 10:20 Dose: Not Given Oxycodone HCl (Roxicodone -) 5 mg PO Q6H PRN PRN Reason: PAIN Last Admin: 11/13/16 10:51 Dose: 5 mg Pantoprazole Sodium (Protonix -) 40 mg PO DAILY [facility] Last Admin: 11/14/16 10:21 Dose: 40 mg - Objective Vital Signs: Vital Signs Temperature 97.6 F 11/14/16 06:00 Pulse Rate 74 11/14/16 06:00 Respiratory Rate 20 11/14/16 06:00 Blood Pressure 99/61 11/14/16 06:00 O2 Sat by Pulse Oximetry (%) 97 11/13/16 21:00 Constitutional: Yes: No Distress Eyes: Yes: Conjunctiva Clear Cardiovascular: Yes: Regular Rate and Rhythm, S1, S2 Respiratory: Yes: CTA Bilaterally Gastrointestinal: Yes: Normal Bowel Sounds, Soft. No: Tenderness Extremities: Yes: Other (erythema of foot resolved + distal ulceration no drainage) Labs: CBC, BMP 11/13/16 07:30 Assessment/Plan Cellulitis/ infected foot ulcer/ osteomyelitis 2nd MT Hx MRSA bacteremia/ septic arthritis of shoulder Await final culture results Continue empiric zosyn/ vancomycin
[2016-11-14] MEDS: DOCUSATE SODIUM 100 MG CAPSULE (FP) PO SCH (22:13)
[2016-11-14] MEDS: INSULIN DETEMIR 100 UNITS/ML MDV SQ SCH (22:21)
[2016-11-14] MEDS: ACETAMINOPHEN 325 MG TABLET (FP) PO PRN (22:23)
[2016-11-15] MEDS: PIPERACILLIN/TAZOB 3.375 GM 50 ML IVPB SCH ×2 (02:01→10:22)
[2016-11-15] MEDS: VANCOMYCIN 1 GRAM (PRE-DOCKED) 250 ML IVPB SCH (03:37)
[2016-11-15] MEDS: GABAPENTIN 300 MG CAPSULE (FP) PO SCH ×3 (05:52→22:22)
[2016-11-15] MEDS: INSULIN SLIDING SCALE (NOVOLOG) 1 VIAL SQ SCH ×4 (06:05→22:25)
[2016-11-15] MEDS: LEVOTHYROXINE NA 100 MCG TABLET (FP) PO SCH (06:08)
[2016-11-15] MEDS: ATORVASTATIN CA 10 MG TABLET (FP) PO SCH (06:09)
--- NOTE | 2016-11-15 10:15 | PN ---
Progress Note, Physician Chief Complaint: AWAKE ALERT C/O DIZZINESS/LIGHT HEADEDNESS DENIES FALLS NO PAIN - Current Medication List Current Medications: Active Medications Acetaminophen (Tylenol -) 650 mg PO Q6H PRN PRN Reason: FEVER OR PAIN Last Admin: 11/14/16 22:23 Dose: 650 mg Allopurinol (Zyloprim -) 300 mg PO DAILY [facility] Last Admin: 11/14/16 10:21 Dose: 300 mg Aspirin (Asa -) 81 mg PO DAILY [facility] Last Admin: 11/14/16 10:22 Dose: 81 mg Atorvastatin Calcium (Lipitor -) 10 mg PO AM [facility] Last Admin: 11/15/16 06:09 Dose: 10 mg Collagenase (Santyl -) 1 applic TP DAILY [facility] Last Admin: 11/14/16 10:26 Dose: 1 grams Docusate Sodium (Colace -) 300 mg PO HS [facility] Last Admin: 11/14/16 22:13 Dose: Not Given Furosemide (Lasix -) 20 mg PO DAILY [facility] Last Admin: 11/14/16 10:20 Dose: 20 mg Gabapentin (Neurontin -) 300 mg PO TID [facility] Last Admin: 11/15/16 05:52 Dose: 300 mg Heparin Sodium (Porcine) (Heparin -) 5,000 unit SQ BID [facility] Last Admin: 11/14/16 22:22 Dose: 5,000 unit Vancomycin HCl (Vancomycin (Pre-Docked)) 250 mls @ 166.667 mls/hr IVPB Q12H [facility] Last Admin: 11/15/16 03:37 Dose: 166.667 mls/hr Piperacillin Sod/Tazobactam Sod (Zosyn 3.375gm Ivpb (Pre-Docked)) 50 mls @ 100 mls/hr IVPB Q8H-IV [facility] PRN Reason: Protocol Last Admin: 11/15/16 02:01 Dose: 100 mls/hr Insulin Aspart (Novolog Vial Sliding Scale -) 1 vial SQ ACHS [facility] PRN Reason: Protocol Last Admin: 11/15/16 06:05 Dose: Not Given Insulin Detemir (Levemir Vial) 25 units SQ HS [facility] Last Admin: 11/14/16 22:21 Dose: 25 units Levothyroxine Sodium (Synthroid -) 100 mcg PO DAILY@0700 [facility] Last Admin: 11/15/16 06:08 Dose: 100 mcg Lisinopril (Prinivil) 2.5 mg PO DAILY [facility] Metoprolol Tartrate (Lopressor -) 12.5 mg PO BID [facility] Last Admin: 11/14/16 22:22 Dose: 12.5 mg Oxycodone HCl (Roxicodone -) 5 mg PO Q6H PRN PRN Reason: PAIN Last Admin: 11/13/16 10:51 Dose: 5 mg Pantoprazole Sodium (Protonix -) 40 mg PO DAILY [facility] Last Admin: 11/14/16 10:21 Dose: 40 mg - Objective Vital Signs: Vital Signs Temperature 98.6 F 11/15/16 05:51 Pulse Rate 75 11/15/16 05:51 Respiratory Rate 20 11/15/16 05:51 Blood Pressure 107/62 11/15/16 05:51 O2 Sat by Pulse Oximetry (%) 100 11/14/16 21:00 Constitutional: Yes: Mild Distress Eyes: Yes: WNL HENT: Yes: WNL Neck: Yes: WNL Cardiovascular: Yes: WNL Respiratory: Yes: WNL Gastrointestinal: Yes: WNL Genitourinary: Yes: WNL Musculoskeletal: Yes: Back Pain Extremities: Yes: WNL, Deformity Edema: Yes Peripheral Pulses WNL: Yes Integumentary: Yes: Pressure Ulcer, Rash Wound/Incision: Yes: Dressing Dry and Intact, Unapproximated Neurological: Yes: Pre-Existing Deficit, Unsteady Gait ...Motor Strength: LLE, RLE Psychiatric: Yes: Other Labs: CBC, BMP 11/13/16 07:30 Problem List - Problems (1) Cellulitis Code(s): L03.90 - CELLULITIS, UNSPECIFIED Qualifiers: Site of cellulitis: extremity Site of cellulitis of extremity: lower extremity Laterality: left Qualified Code(s): L03.116 - Cellulitis of left lower limb (2) Osteomyelitis Code(s): M86.9 - OSTEOMYELITIS, UNSPECIFIED Qualifiers: Osteomyelitis type: other acute Osteomyelitis location: foot Laterality: left Qualified Code(s): M86.172 - Other acute osteomyelitis, left ankle and foot (3) DM2 (diabetes mellitus, type 2) Code(s): E11.9 - TYPE 2 DIABETES MELLITUS WITHOUT COMPLICATIONS Qualifiers: Diabetes mellitus complication status: with neurologic complications Diabetes mellitus complication detail: with polyneuropathy 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
[2016-11-15] MEDS: FUROSEMIDE 20 MG TABLET (FP) PO SCH (10:21)
[2016-11-15] MEDS: ASPIRIN 81 MG CHEWABLE TABLETS PO SCH (10:21)
[2016-11-15] MEDS: PANTOPRAZOLE 40 MG TABLET (FP) PO SCH (10:21)
[2016-11-15] MEDS: ALLOPURINOL 300 MG TABLET (FP) PO SCH (10:21)
[2016-11-15] MEDS: HEPARIN NA (PORCINE) 5,000 UNITS/ML 1ML VIAL SQ SCH ×2 (10:21→22:24)
[2016-11-15] MEDS: LISINOPRIL 5 MG TABLET (FP) PO SCH (10:22)
[2016-11-15] MEDS: METOPROLOL TARTRATE 25 MG TABLET (FP) PO SCH ×2 (10:22→22:21)
[2016-11-15] MEDS: COLLAGENASE CLOSTRIDIUM HIST. 30 GRAMS TUBE TP SCH (10:22)
[2016-11-15 11:09] LABS: MCH 20.2 pg (25.7-33.7); MCHC 30.5 g/dl (32.0-36.0); MEAN CELL VOLUME 66.3 fl (80-96); MEAN PLT VOLUME 8.5 fl (7.5-11.1); PLATELET COUNT 344 K/MM3 (134-434); RDW 15.7 % (11.6-15.6); WHITE BLOOD COUNT 5.3 K/mm3 (4.0-10.0)
[2016-11-15 11:33] LABS: BILIRUBIN,TOTAL 0.3 mg/dL (0.2-1.0); CREATININE 1.3 mg/dL (0.55-1.02); TOT PROT 6.7 g/dl (6.4-8.2)
--- NOTE | 2016-11-15 12:17 | PN ---
Progress Note, Physician History of Present Illness: No c/o foot pain Reports less dizziness No fever/ chills - Current Medication List Current Medications: Active Medications Acetaminophen (Tylenol -) 650 mg PO Q6H PRN PRN Reason: FEVER OR PAIN Last Admin: 11/14/16 22:23 Dose: 650 mg Allopurinol (Zyloprim -) 300 mg PO DAILY [facility] Last Admin: 11/15/16 10:21 Dose: 300 mg Aspirin (Asa -) 81 mg PO DAILY [facility] Last Admin: 11/15/16 10:21 Dose: 81 mg Atorvastatin Calcium (Lipitor -) 10 mg PO AM [facility] Last Admin: 11/15/16 06:09 Dose: 10 mg Collagenase (Santyl -) 1 applic TP DAILY [facility] Last Admin: 11/15/16 10:22 Dose: 1 grams Docusate Sodium (Colace -) 300 mg PO HS [facility] Last Admin: 11/14/16 22:13 Dose: Not Given Furosemide (Lasix -) 20 mg PO DAILY [facility] Last Admin: 11/15/16 10:21 Dose: 20 mg Gabapentin (Neurontin -) 300 mg PO TID [facility] Last Admin: 11/15/16 05:52 Dose: 300 mg Heparin Sodium (Porcine) (Heparin -) 5,000 unit SQ BID [facility] Last Admin: 11/15/16 10:21 Dose: 5,000 unit Ceftriaxone Sodium 2 gm/ (Dextrose) 100 mls @ 200 mls/hr IVPB DAILY [facility] Insulin Aspart (Novolog Vial Sliding Scale -) 1 vial SQ ACHS [facility] PRN Reason: Protocol Last Admin: 11/15/16 12:13 Dose: 2 units Insulin Detemir (Levemir Vial) 25 units SQ HS [facility] Last Admin: 11/14/16 22:21 Dose: 25 units Levothyroxine Sodium (Synthroid -) 100 mcg PO DAILY@0700 [facility] Last Admin: 11/15/16 06:08 Dose: 100 mcg Lisinopril (Prinivil) 2.5 mg PO DAILY [facility] Last Admin: 11/15/16 10:22 Dose: 2.5 mg Metoprolol Tartrate (Lopressor -) 12.5 mg PO BID [facility] Last Admin: 11/15/16 10:22 Dose: 12.5 mg Oxycodone HCl (Roxicodone -) 5 mg PO Q6H PRN PRN Reason: PAIN Last Admin: 11/13/16 10:51 Dose: 5 mg Pantoprazole Sodium (Protonix -) 40 mg PO DAILY [facility] Last Admin: 11/15/16 10:21 Dose: 40 mg - Objective Vital Signs: Vital Signs Temperature 98.6 F 11/15/16 05:51 Pulse Rate 75 11/15/16 05:51 Respiratory Rate 20 11/15/16 05:51 Blood Pressure 107/62 11/15/16 05:51 O2 Sat by Pulse Oximetry (%) 100 11/14/16 21:00 Constitutional: Yes: No Distress Eyes: Yes: Conjunctiva Clear Cardiovascular: Yes: Regular Rate and Rhythm, S1 Respiratory: Yes: CTA Bilaterally Gastrointestinal: Yes: Normal Bowel Sounds, Soft Extremities: Yes: Other (erythema of foot resolved no wound drainage) Labs: CBC, BMP 11/15/16 10:50 11/15/16 10:50 Assessment/Plan Cellulitis/ infected foot ulcer/ osteomyelitis 2nd MT Hx MRSA bacteremia/ septic arthritis of shoulder D/C zosyn/ vancomycin Substitute ceftriaxone 2gm IVPB q24h PICC 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
[2016-11-15] MEDS: CEFTRIAXONE 100 ML IVPB SCH (13:49)
--- NOTE | 2016-11-15 17:03 | EKG ---
Test Reason : Blood Pressure : / mmHG Vent. Rate : 077 BPM Atrial Rate : 077 BPM P-R Int : 164 ms QRS Dur : 128 ms QT Int : 414 ms P-R-T Axes : 044 -09 011 degrees QTc Int : 468 ms NORMAL SINUS RHYTHM RIGHT BUNDLE BRANCH BLOCK ABNORMAL ECG WHEN COMPARED WITH ECG OF 20-MAR-2016 09:15, RIGHT BUNDLE BRANCH BLOCK HAS REPLACED INCOMPLETE RIGHT BUNDLE BRANCH BLOCK Confirmed by DANIEL EVANS, HUMZA ([id number]) on 11/15/2016 5:02:55 PM Referred By: BRADLEY JOVEL Confirmed By:HUMZA SANCHEZ MD
--- NOTE | 2016-11-15 17:59 | CON.NEURO ---
Consult Consult Specialty:: NEUROLOGY Reason for Consultation:: dizziness, ataxia, vertigo - History of Present Illness History of Present Illness: 61y.female with pmh. of DM2, peripheral neuropathy, left leg wound ulcer, HTN, HLD was admitted for left leg ulcer wound. While in the hospital she complains of vertigo , dizziness. - History Source History Provided By: Patient, Medical Record Limitations to Obtaining History: Language Barrier - Past Medical History Cardio/Vascular: Yes: HTN ...: No Rheumatology: Yes: Gout Endocrine: Yes: Diabetes Mellitus - Alcohol/Substance Use Hx Alcohol Use: No - Smoking History Smoking history: Never smoked Have you smoked in the past 12 months: No Aproximately how many cigarettes per day: 0 - Social History Usual Living Arrangement: With Spouse Home Medications - Allergies Allergies/Adverse Reactions: Allergies Allergy/AdvReac Type Severity Reaction Status Date / Time No Known Drug Allergies Allergy Verified 03/18/16 17:12 - Home Medications Home Medications: Ambulatory Orders Allopurinol 300 mg PO DAILY 01/10/16 Aspirin [Aspirin EC] 81 mg PO DAILY 01/10/16 Furosemide [Lasix -] 20 mg PO DAILY 01/10/16 Lisinopril 5 mg PO DAILY 01/10/16 Metoprolol Tartrate 12.5 mg PO BID 01/10/16 Multivitamins [Multivit ([facility] Formulary)] 1 tab PO DAILY 01/10/16 Pravastatin Sodium 20 mg PO DAILY 01/10/16 Oxycodone HCl/Acetaminophen [Percocet 10-325 mg Tablet] 1 each PO QID #20 tablet MDD 4 03/18/16 Acetaminophen [Tylenol .Regular Strength -] 650 mg PO Q6H PRN #0 tablet Docusate Sodium [Colace -] 100 mg PO BID PRN #0 capsule 03/28/16 Gabapentin [Neurontin -] 300 mg PO TID capsule 03/28/16 Insulin Sliding Scale [Novolog Vial Sliding Scale -] 1 vial SQ TIDAC #0 units Levothyroxine [Synthroid -] 100 mcg PO DAILY@0700 tablet 03/28/16 Naproxen [Naprosyn -] 500 mg PO BID tablet 03/28/16 Pantoprazole Sodium [Protonix -] 40 mg PO DAILY tablet.ec 03/28/16 Insulin (Levemir) [Levemir Vial] 25 units SQ [facility] 11/12/16 Review of Systems - Review of Systems Constitutional: reports: No Symptoms Eyes: reports: No Symptoms HENT: reports: No Symptoms Neck: reports: No Symptoms Cardiovascular: reports: No Symptoms Respiratory: reports: No Symptoms Gastrointestinal: reports: No Symptoms Genitourinary: reports: No Symptoms Breasts: reports: No Symptoms Reported Musculoskeletal: reports: Extremity Pain, Muscle Weakness Integumentary: reports: Wound Neurological: reports: Pre-Existing Deficit, Unsteady Gait Endocrine: reports: No Symptoms Hematology/Lymphatic: reports: No Symptoms Psychiatric: reports: No Symptoms Physical Exam-Neuro Vital Signs: Vital Signs Temperature 98.4 F 11/15/16 15:29 Pulse Rate 76 11/15/16 15:29 Respiratory Rate 18 11/15/16 15:29 Blood Pressure 107/62 11/15/16 05:51 O2 Sat by Pulse Oximetry (%) 97 11/15/16 09:00 Constitutional: Yes: No Distress, Calm Neck: Yes: Supple, Trachea Midline Cardiovascular: Yes: Regular Rate and Rhythm, S1, S2 Respiratory: Yes: Regular, CTA Bilaterally Gastrointestinal: Yes: Normal Bowel Sounds, Soft Edema: Yes Edema: LLE: 1+, RLE: 1+ Psychiatric: Yes: Alert, Oriented Labs: CBC, BMP 11/15/16 10:50 11/15/16 10:50 - Neuro Exam Level Of Consciousness: Yes: Oriented to Person, Oriented to Place, Oriented to Time Eyes: Yes: PERRLA Speech: WNL Dominant Hand: Right Cranial Nerves II-XII Intact: Yes Gag: Present DTR's: 1+ Left Bicep, 1+ Right Bicep, 1+ Left Tricep, 1+ Right Tricep, 1+ Left Brachioradialis, 1+ Right Brachioradialis, 1+ Left Achilles, 1+ Right Achilles Babinski: Absent Response to light touch: Normal Response to pain prick: Normal Response to temperature: Normal Response to vibration: Normal Coordination: Normal: Finger to Nose, Heel to [place] Motor Strength: 4/5: Left Leg, 5/5: Left Arm, Right Arm, Right Leg Gait: Deferred NIH Stroke Scale - Total Score NIH Stroke Scale Score: 0 Imaging - Results Cat Scan: Report Reviewed, Image Reviewed Problem List - Problems (1) DM2 (diabetes mellitus, type 2) Code(s): E11.9 - TYPE 2 DIABETES MELLITUS WITHOUT COMPLICATIONS Qualifiers: Diabetes mellitus complication status: with neurologic complications Diabetes mellitus complication detail: with polyneuropathy Diabetes mellitus 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 Qualified Code(s): E11.42 - Type 2 diabetes mellitus with diabetic polyneuropathy; 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 of DM2, peripheral neuropathy, left leg wound ulcer, HTN, HLD was admitted for left leg ulcer wound. While in the hospital she complains of vertigo , dizziness. She states she had in the past dizziness , when she turned her head to the left in bed. She also has intermittent tinnitus in her ears. She denies diplopia, nausea, numbness in her arms or legs. She is taking an aspirin daily. Neurological exam is nonfocal. On lab. there is moderate anemia. subjective vertigo. Impression: benign positional vertigo versus basilar vertebral insufficiency. Plan: - to do MRI brain wo contrast to rule out stroke, ICP - to do MRA head and neck to rule out basilar/vertebral stenosis - continues aspirin po . daily, statin po daily, heparin sq for DVT prophylaxis. - check lipids profile, vitamin B12 level, folic acid level. - start extra B12 po daily, folic acid po daily, consider one banana bag. iv. one time. - correct anemia. - to have vestibulogram as outpatient. - meclizine 12.5mg. po q8h. prn for severe vertigo. Thank you for this kind referral.
[2016-11-15] MEDS: DOCUSATE SODIUM 100 MG CAPSULE (FP) PO SCH (22:20)
[2016-11-15] MEDS: INSULIN DETEMIR 100 UNITS/ML MDV SQ SCH (22:24)
[2016-11-16 06:06] LABS: SERUM IRON 77 ug/dL (27-159); TOTAL IRON BINDING CAPACITY 225 ug/dL (250-450); UIBC 148 ug/dL (131-425)
[2016-11-16] MEDS: GABAPENTIN 300 MG CAPSULE (FP) PO SCH ×3 (06:29→21:41)
[2016-11-16] MEDS: LEVOTHYROXINE NA 100 MCG TABLET (FP) PO SCH (06:31)
[2016-11-16] MEDS: ATORVASTATIN CA 10 MG TABLET (FP) PO SCH (06:32)
[2016-11-16] MEDS: INSULIN SLIDING SCALE (NOVOLOG) 1 VIAL SQ SCH ×4 (06:32→21:53)
[2016-11-16] MEDS ORDERED: FOLIC ACID INJECTION - 1 MG, THIAMINE HCL 100 MG, MULTIVIT INJECTION ADULT 10 ML in SOD... IVPB ONE (07:03)
[2016-11-16] MEDS: LISINOPRIL 5 MG TABLET (FP) PO SCH (09:11)
[2016-11-16] MEDS: FUROSEMIDE 20 MG TABLET (FP) PO SCH (09:11)
[2016-11-16] MEDS: PANTOPRAZOLE 40 MG TABLET (FP) PO SCH (09:11)
[2016-11-16] MEDS: CEFTRIAXONE 100 ML IVPB SCH (09:11)
[2016-11-16] MEDS: METOPROLOL TARTRATE 25 MG TABLET (FP) PO SCH ×2 (09:12→21:40)
[2016-11-16] MEDS: ASPIRIN 81 MG CHEWABLE TABLETS PO SCH (09:12)
[2016-11-16] MEDS: HEPARIN NA (PORCINE) 5,000 UNITS/ML 1ML VIAL SQ SCH ×2 (09:14→21:41)
[2016-11-16] MEDS: ALLOPURINOL 300 MG TABLET (FP) PO SCH (09:14)
[2016-11-16] MEDS: COLLAGENASE CLOSTRIDIUM HIST. 30 GRAMS TUBE TP SCH (09:15)
--- NOTE | 2016-11-16 12:27 | HOL ---
Hook-up date: 2016-11-15 09:54:00 Duration: 22:10:00 Test Indications: dizziness Medications: 75907 QRS complexes 74 Ventricular ectopics which represent <1 % of total QRS comp. 66 Supraventricular ectopics which represent <1 % of total QRS comp. * Paced QRS complexs which represent % of total QRS comp. 2 % of Time Classified as Noise VENTRICULAR ECTOPY 70 Isolated 3 Bigeminal Cycles 2 Couplets 0 Runs 0 Beats in Runs * Beats LONGEST at * BPM at :: -- * Beats FASTEST at * BPM at :: -- SUPRAVENTRICULAR ECTOPY 36 Isolated 5 Couplets 2 Runs 20 Beats in Runs 11 Beats LONGEST at 129 BPM at 00:03:44 2016-11-16 11 Beats FASTEST at 129 BPM at 00:03:44 2016-11-16 HEART RATES 60 MIN at 04:09:30 2016-11-16 73 AVG 98 MAX at 23:10:05 2016-11-15 LONGEST RR 1.392 secs at 04:09:26 2016-11-16 The underlying rhythm is normal sinus. There were rare ventricular premature contractions. Rare atrial premature contractions. Several short, self limited runs or paroxysmal supraventricular tachycardia- probably atrial tachycardia, the longest lasting 11 beats at a rate of 129bpm. No significant pauses. No diary entry. Confirmed by AMBER FARR MD ([id number]) on 11/16/2016 12:27:09 PM Referred By: Overread By: AMBER FARR MD
--- NOTE | 2016-11-16 13:32 | PN ---
Progress Note, Physician History of Present Illness: No c/o foot pain No fever/ chills Tolerating antibiotics - Current Medication List Current Medications: Active Medications Acetaminophen (Tylenol -) 650 mg PO Q6H PRN PRN Reason: FEVER OR PAIN Last Admin: 11/14/16 22:23 Dose: 650 mg Allopurinol (Zyloprim -) 300 mg PO DAILY [facility] Last Admin: 11/16/16 09:14 Dose: 300 mg Aspirin (Asa -) 81 mg PO DAILY [facility] Last Admin: 11/16/16 09:12 Dose: 81 mg Atorvastatin Calcium (Lipitor -) 10 mg PO AM [facility] Last Admin: 11/16/16 06:32 Dose: 10 mg Collagenase (Santyl -) 1 applic TP DAILY [facility] Last Admin: 11/16/16 09:15 Dose: 1 grams Docusate Sodium (Colace -) 300 mg PO HS [facility] Last Admin: 11/15/16 22:20 Dose: 300 mg Furosemide (Lasix -) 20 mg PO DAILY [facility] Last Admin: 11/16/16 09:11 Dose: 20 mg Gabapentin (Neurontin -) 300 mg PO TID [facility] Last Admin: 11/16/16 06:29 Dose: 300 mg Heparin Sodium (Porcine) (Heparin -) 5,000 unit SQ BID [facility] Last Admin: 11/16/16 09:14 Dose: 5,000 unit Ceftriaxone Sodium (Rocephin 2gm Ivpb (Pre-Docked)) 100 mls @ 200 mls/hr IVPB DAILY [facility] Last Admin: 11/16/16 09:11 Dose: 200 mls/hr Folic Acid 1 mg/ Thiamine HCl 100 mg/ Multivitamins/Minerals 10 ml/ Sodium Chloride 1,000 mls @ 125 mls/hr IVPB ONCE ONE Stop: 11/16/16 15:02 Last Admin: 11/16/16 09:10 Dose: 125 mls/hr Insulin Aspart (Novolog Vial Sliding Scale -) 1 vial SQ [facility] PRN Reason: Protocol Last Admin: 11/16/16 11:59 Dose: 2 units Insulin Detemir (Levemir Vial) 25 units SQ [facility] Last Admin: 11/15/16 22:24 Dose: 25 units Levothyroxine Sodium (Synthroid -) 100 mcg PO DAILY@0700 [facility] Last Admin: 11/16/16 06:31 Dose: 100 mcg Lisinopril (Prinivil) 2.5 mg PO DAILY [facility] Last Admin: 11/16/16 09:11 Dose: 2.5 mg Metoprolol Tartrate (Lopressor -) 12.5 mg PO BID [facility] Last Admin: 11/16/16 09:12 Dose: 12.5 mg Oxycodone HCl (Roxicodone -) 5 mg PO Q6H PRN PRN Reason: PAIN Last Admin: 11/13/16 10:51 Dose: 5 mg Pantoprazole Sodium (Protonix -) 40 mg PO DAILY [facility] Last Admin: 11/16/16 09:11 Dose: 40 mg - Objective Vital Signs: Vital Signs Temperature 98.2 F 11/16/16 08:00 Pulse Rate 68 11/16/16 08:00 Respiratory Rate 18 11/16/16 08:00 Blood Pressure 112/62 11/16/16 08:00 O2 Sat by Pulse Oximetry (%) 97 11/16/16 09:00 Constitutional: Yes: No Distress Eyes: Yes: Conjunctiva Clear Cardiovascular: Yes: Regular Rate and Rhythm, S1, S2 Respiratory: Yes: CTA Bilaterally Gastrointestinal: Yes: Normal Bowel Sounds, Soft. 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
[2016-11-16] MEDS ORDERED: PICC LINE 8 ML FLUSH PROTOCOL IVPUSH PRN (13:35)
[2016-11-16] MEDS: metroNIDAZOLE 250 MG TABLET PO SCH ×2 (14:07→21:40)
--- NOTE | 2016-11-16 15:18 | PN ---
Progress Note, Physician History of Present Illness: 61y.female with pmh. of DM2, peripheral neuropathy, left leg wound ulcer, HTN, HLD was admitted for left leg ulcer wound. While in the hospital she complains of vertigo , dizziness. She states she had sudden dizziness when she stands up, after antibiotic infusion iv. She denies diplopia, nausea, vomiting. She used to have dizziness one year ago and she was seen by in the office . - Current Medication List Current Medications: Active Medications Acetaminophen (Tylenol -) 650 mg PO Q6H PRN PRN Reason: FEVER OR PAIN Last Admin: 11/14/16 22:23 Dose: 650 mg Allopurinol (Zyloprim -) 300 mg PO DAILY [facility] Last Admin: 11/16/16 09:14 Dose: 300 mg Aspirin (Asa -) 81 mg PO DAILY [facility] Last Admin: 11/16/16 09:12 Dose: 81 mg Atorvastatin Calcium (Lipitor -) 10 mg PO AM [facility] Last Admin: 11/16/16 06:32 Dose: 10 mg Collagenase (Santyl -) 1 applic TP DAILY [facility] Last Admin: 11/16/16 09:15 Dose: 1 grams Docusate Sodium (Colace -) 300 mg PO HS [facility] Last Admin: 11/15/16 22:20 Dose: 300 mg Furosemide (Lasix -) 20 mg PO DAILY [facility] Last Admin: 11/16/16 09:11 Dose: 20 mg Gabapentin (Neurontin -) 300 mg PO TID [facility] Last Admin: 11/16/16 14:07 Dose: 300 mg Heparin Sodium (Porcine) (Heparin -) 5,000 unit SQ BID [facility] Last Admin: 11/16/16 09:14 Dose: 5,000 unit IV Flush (Picc Line Flush) 8 ml IVPUSH PRN PRN PRN Reason: Protocol Ceftriaxone Sodium (Rocephin 2gm Ivpb (Pre-Docked)) 100 mls @ 200 mls/hr IVPB DAILY [facility] Last Admin: 11/16/16 09:11 Dose: 200 mls/hr Insulin Aspart (Novolog Vial Sliding Scale -) 1 vial SQ ACHS [facility] PRN Reason: Protocol Last Admin: 11/16/16 11:59 Dose: 2 units Insulin Detemir (Levemir Vial) 25 units SQ HS [facility] Last Admin: 11/15/16 22:24 Dose: 25 units Levothyroxine Sodium (Synthroid -) 100 mcg PO DAILY@0700 [facility] Last Admin: 11/16/16 06:31 Dose: 100 mcg Lisinopril (Prinivil) 2.5 mg PO DAILY [facility] Last Admin: 11/16/16 09:11 Dose: 2.5 mg Metoprolol Tartrate (Lopressor -) 12.5 mg PO BID [facility] Last Admin: 11/16/16 09:12 Dose: 12.5 mg Metronidazole (Flagyl -) 500 mg PO TID [facility] Last Admin: 11/16/16 14:07 Dose: 500 mg Oxycodone HCl (Roxicodone -) 5 mg PO Q6H PRN PRN Reason: PAIN Last Admin: 11/13/16 10:51 Dose: 5 mg Pantoprazole Sodium (Protonix -) 40 mg PO DAILY [facility] Last Admin: 11/16/16 09:11 Dose: 40 mg - Objective Vital Signs: Vital Signs Temperature 98.2 F 11/16/16 08:00 Pulse Rate 68 11/16/16 08:00 Respiratory Rate 18 11/16/16 08:00 Blood Pressure 112/62 11/16/16 08:00 O2 Sat by Pulse Oximetry (%) 97 11/16/16 09:00 Constitutional: Yes: No Distress, Calm Eyes: Yes: Conjunctiva Clear, EOM Intact, PERRL HENT: Yes: Atraumatic, Normocephalic Neck: Yes: Supple, Trachea Midline Genitourinary: Yes: WNL Breast(s): Yes: WNL Musculoskeletal: Yes: WNL, Joint Swelling Extremities: Yes: Amputation, Erythema Edema: Yes Edema: LLE: 2+ Peripheral Pulses WNL: Yes Peripheral Pulses: Left Radial: 1+, Right Radial: 1+ Wound/Incision: Yes: Well Approximated Neurological: Yes: Alert, Oriented, Cran Nerves II-XII Intact ...Motor Strength: WNL Psychiatric: Yes: Alert, Oriented Labs: CBC, BMP 11/15/16 10:50 11/15/16 10:50 - ....Imaging Ultrasound: Report Reviewed, Image Reviewed Problem List - Problems (1) DM2 (diabetes mellitus, type 2) Code(s): E11.9 - TYPE 2 DIABETES MELLITUS WITHOUT COMPLICATIONS Qualifiers: Diabetes mellitus complication status: with neurologic complications Diabetes mellitus complication detail: with polyneuropathy Diabetes mellitus residential insulin use: with 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 terminal 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 Qualified Code(s): E11.42 - Type 2 diabetes mellitus with diabetic polyneuropathy; Z79.4 - skilled nursing (current) use of insulin (2) Cellulitis Code(s): L03.90 - CELLULITIS, UNSPECIFIED Qualifiers: Site of cellulitis: extremity Site of cellulitis of extremity: lower extremity Laterality: left Qualified Code(s): L03.116 - Cellulitis of left lower limb (3) Dizziness Code(s): R42 - DIZZINESS AND GIDDINESS (4) Fall Code(s): W19.XXXA - UNSPECIFIED FALL, INITIAL ENCOUNTER (5) Vertigo Code(s): R42 - DIZZINESS AND GIDDINESS (6) Tinnitus Code(s): H93.19 - TINNITUS, UNSPECIFIED EAR (7) Anemia Code(s): D64.9 - ANEMIA, UNSPECIFIED Assessment/Plan 61y.female with pmh. of DM2, peripheral neuropathy, left leg wound ulcer, HTN, HLD was admitted for left leg ulcer wound. While in the hospital she complains of vertigo , dizziness. She states she had in the past dizziness , when she turned her head to the left in bed. She also has intermittent tinnitus in her ears. She denies diplopia, nausea, numbness in her arms or legs. She is taking an aspirin daily. Neurological exam is nonfocal. On lab. there is moderate anemia. subjective vertigo. Impression: benign positional vertigo versus basilar vertebral insufficiency. Plan: - to do MRI brain wo contrast to rule out stroke, ICP - to do MRA head and neck to rule out basilar/vertebral stenosis - continues aspirin po . daily, statin po daily, heparin sq for DVT prophylaxis. - check lipids profile, vitamin B12 level, folic acid level. - start extra B12 po daily, folic acid po daily, consider one banana bag. iv. one time. - correct anemia. start iron supplements. - to have vestibulogram [facility] as outpatient. - meclizine 12.5mg. po q8h. prn for severe vertigo. Thank you for this kind referral.
--- NOTE | 2016-11-16 16:47 | PN ---
Progress Note (short form) - Note Progress Note: Vascular Surgery Pt seen and examined. [employer] sewer there. 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 Will need outpt hyperbaric oxygen treatment. Will follow in wound care clinic upon DC. Please make pt appt with wound care clinic prior to DC Bernard Butterfield DO
[2016-11-16] MEDS: FERROUS SO4 325 MG TABLET (FP) PO SCH (16:48)
--- NOTE | 2016-11-16 17:53 | PN ---
Progress Note, Physician Chief Complaint: awake alert feeling better - Current Medication List Current Medications: Active Medications Acetaminophen (Tylenol -) 650 mg PO Q6H PRN PRN Reason: FEVER OR PAIN Last Admin: 11/14/16 22:23 Dose: 650 mg Allopurinol (Zyloprim -) 300 mg PO DAILY [facility] Last Admin: 11/16/16 09:14 Dose: 300 mg Aspirin (Asa -) 81 mg PO DAILY [facility] Last Admin: 11/16/16 09:12 Dose: 81 mg Atorvastatin Calcium (Lipitor -) 10 mg PO AM [facility] Last Admin: 11/16/16 06:32 Dose: 10 mg Collagenase (Santyl -) 1 applic TP DAILY [facility] Last Admin: 11/16/16 09:15 Dose: 1 grams Docusate Sodium (Colace -) 300 mg PO HS [facility] Last Admin: 11/15/16 22:20 Dose: 300 mg Ferrous Sulfate (Feosol -) 325 mg PO DAILY [facility] Last Admin: 11/16/16 16:48 Dose: 325 mg Furosemide (Lasix -) 20 mg PO DAILY [facility] Last Admin: 11/16/16 09:11 Dose: 20 mg Gabapentin (Neurontin -) 300 mg PO TID [facility] Last Admin: 11/16/16 14:07 Dose: 300 mg Heparin Sodium (Porcine) (Heparin -) 5,000 unit SQ BID [facility] Last Admin: 11/16/16 09:14 Dose: 5,000 unit IV Flush (Picc Line Flush) 8 ml IVPUSH PRN PRN PRN Reason: Protocol Ceftriaxone Sodium (Rocephin 2gm Ivpb (Pre-Docked)) 100 mls @ 200 mls/hr IVPB DAILY [facility] Last Admin: 11/16/16 09:11 Dose: 200 mls/hr Insulin Aspart (Novolog Vial Sliding Scale -) 1 vial SQ ACHS [facility] PRN Reason: Protocol Last Admin: 11/16/16 16:52 Dose: 2 units Insulin Detemir (Levemir Vial) 25 units SQ HS [facility] Last Admin: 11/15/16 22:24 Dose: 25 units Levothyroxine Sodium (Synthroid -) 100 mcg PO DAILY@0700 [facility] Last Admin: 11/16/16 06:31 Dose: 100 mcg Lisinopril (Prinivil) 2.5 mg PO DAILY [facility] Last Admin: 03/24/17 09:11 Dose: 2.5 mg Metoprolol Tartrate (Lopressor -) 12.5 mg PO BID [facility] Last Admin: 11/16/16 09:12 Dose: 12.5 mg Metronidazole (Flagyl -) 500 mg PO TID [facility] Last Admin: 11/16/16 14:07 Dose: 500 mg Oxycodone HCl (Roxicodone -) 5 mg PO Q6H PRN PRN Reason: PAIN Last Admin: 11/13/16 10:51 Dose: 5 mg Pantoprazole Sodium (Protonix -) 40 mg PO DAILY [facility] Last Admin: 11/16/16 09:11 Dose: 40 mg - Objective Vital Signs: Vital Signs Temperature 98.2 F 11/16/16 08:00 Pulse Rate 68 11/16/16 08:00 Respiratory Rate 18 11/16/16 08:00 Blood Pressure 112/62 11/16/16 08:00 O2 Sat by Pulse Oximetry (%) 97 11/16/16 09:00 Constitutional: Yes: Mild Distress Eyes: Yes: WNL HENT: Yes: WNL Neck: Yes: WNL Cardiovascular: Yes: WNL Respiratory: Yes: WNL Gastrointestinal: Yes: WNL Genitourinary: Yes: WNL Musculoskeletal: Yes: Joint Swelling, Muscle Weakness Extremities: Yes: Deformity Edema: Yes Peripheral Pulses WNL: Yes Integumentary: Yes: Pressure Ulcer, Other Wound/Incision: Yes: Dressing Dry and Intact Neurological: Yes: Pre-Existing Deficit, Unsteady Gait ...Motor Strength: LLE, RLE Psychiatric: Yes: Other Labs: CBC, BMP 11/15/16 10:50 11/15/16 10:50 Problem List - Problems (1) Cellulitis Code(s): L03.90 - CELLULITIS, UNSPECIFIED Qualifiers: Site of cellulitis: extremity Site of cellulitis of extremity: lower extremity Laterality: left Qualified Code(s): L03.116 - Cellulitis of left lower limb (2) Osteomyelitis Code(s): M86.9 - OSTEOMYELITIS, UNSPECIFIED Qualifiers: Osteomyelitis type: other acute Osteomyelitis location: foot Laterality: left Qualified Code(s): M86.172 - Other acute osteomyelitis, left ankle and foot (3) DM2 (diabetes mellitus, type 2) Code(s): E11.9 - TYPE 2 DIABETES MELLITUS WITHOUT COMPLICATIONS Qualifiers: Diabetes mellitus complication status: with neurologic complications Diabetes mellitus complication detail: with polyneuropathy Diabetes mellitus fdc insulin use: with fdc use Qualified Code(s): E11.42 - Type 2 diabetes mellitus with diabetic polyneuropathy; Z79.4 - senior living (current) use of insulin (4) HTN (hypertension) Code(s): I10 - ESSENTIAL (PRIMARY) HYPERTENSION Assessment/Plan MRI POSITIVE OSTEOMYELITIS IV ABX PER ID PICC LINE WITH LONG-TERM ABX SATURDAY SNF DVT PROPHYLAXIS OOB TO CHAIR TIGHT GLYCEMIC CONTROL CHANGE LISINOPRIL FROM 10MG TO 2.5MG LOW BP NEUROLOGY CONSULT FOR DIZZINESS EKG NOW HOLTER
[2016-11-16] MEDS: DOCUSATE SODIUM 100 MG CAPSULE (FP) PO SCH (21:40)
[2016-11-16] MEDS: INSULIN DETEMIR 100 UNITS/ML MDV SQ SCH (21:53)
[2016-11-17] MEDS: oxyCODONE HCL 5 MG TABLET PO PRN (03:42)
[2016-11-17] MEDS: ACETAMINOPHEN 325 MG TABLET (FP) PO PRN ×2 (03:43→12:43)
[2016-11-17] MEDS: ATORVASTATIN CA 10 MG TABLET (FP) PO SCH (06:11)
[2016-11-17] MEDS: metroNIDAZOLE 250 MG TABLET PO SCH ×3 (06:11→21:54)
[2016-11-17] MEDS: LEVOTHYROXINE NA 100 MCG TABLET (FP) PO SCH (06:12)
[2016-11-17] MEDS: GABAPENTIN 300 MG CAPSULE (FP) PO SCH ×3 (06:13→21:54)
[2016-11-17] MEDS: INSULIN SLIDING SCALE (NOVOLOG) 1 VIAL SQ SCH ×4 (06:25→21:55)
[2016-11-17 08:21] LABS: MCH 20.3 pg (25.7-33.7); MCHC 30.6 g/dl (32.0-36.0); MEAN CELL VOLUME 66.4 fl (80-96); MEAN PLT VOLUME 8.4 fl (7.5-11.1); PLATELET COUNT 296 K/MM3 (134-434); RDW 15.8 % (11.6-15.6); WHITE BLOOD COUNT 7.3 K/mm3 (4.0-10.0)
[2016-11-17 08:51] LABS: CALCIUM 8.6 mg/dL (8.5-10.1); CREATININE 1.1 mg/dL (0.55-1.02)
[2016-11-17] MEDS ORDERED: PT OWN MED DRAWER 7, Y5N ONE ×2 (10:16→17:47)
[2016-11-17] MEDS: LISINOPRIL 5 MG TABLET (FP) PO SCH (10:19)
[2016-11-17] MEDS: ASPIRIN 81 MG CHEWABLE TABLETS PO SCH (10:19)
[2016-11-17] MEDS: FUROSEMIDE 20 MG TABLET (FP) PO SCH (10:19)
[2016-11-17] MEDS: METOPROLOL TARTRATE 25 MG TABLET (FP) PO SCH ×2 (10:19→21:54)
[2016-11-17] MEDS: FERROUS SO4 325 MG TABLET (FP) PO SCH (10:19)
[2016-11-17] MEDS: PANTOPRAZOLE 40 MG TABLET (FP) PO SCH (10:19)
[2016-11-17] MEDS: ALLOPURINOL 300 MG TABLET (FP) PO SCH (10:19)
[2016-11-17] MEDS: HEPARIN NA (PORCINE) 5,000 UNITS/ML 1ML VIAL SQ SCH ×2 (10:20→21:54)
[2016-11-17] MEDS: CEFTRIAXONE 100 ML IVPB SCH (10:22)
[2016-11-17] MEDS: COLLAGENASE CLOSTRIDIUM HIST. 30 GRAMS TUBE TP SCH (10:22)
[2016-11-17 10:41] LABS: HYPOCHROMIA 2+; PLATELET COMMENT2 NO CLOTTING DETECTED; PLATELET ESTIMATE ADEQUATE (NORMAL); POLYCHROMASIA 1+
--- NOTE | 2016-11-17 10:52 | PN ---
Progress Note, Physician History of Present Illness: No c/o foot pain No fever/ chills Tolerating antibiotics - Current Medication List Current Medications: Active Medications Acetaminophen (Tylenol -) 650 mg PO Q6H PRN PRN Reason: FEVER OR PAIN Last Admin: 11/17/16 03:43 Dose: 650 mg Allopurinol (Zyloprim -) 300 mg PO DAILY [facility] Last Admin: 11/17/16 10:19 Dose: 300 mg Aspirin (Asa -) 81 mg PO DAILY [facility] Last Admin: 11/17/16 10:19 Dose: 81 mg Atorvastatin Calcium (Lipitor -) 10 mg PO AM [facility] Last Admin: 11/17/16 06:11 Dose: 10 mg Collagenase (Santyl -) 1 applic TP DAILY [facility] Last Admin: 11/17/16 10:22 Dose: 1 applic Docusate Sodium (Colace -) 300 mg PO HS [facility] Last Admin: 11/16/16 21:40 Dose: 300 mg Ferrous Sulfate (Feosol -) 325 mg PO DAILY [facility] Last Admin: 11/17/16 10:19 Dose: 325 mg Furosemide (Lasix -) 20 mg PO DAILY [facility] Last Admin: 11/17/16 10:19 Dose: 20 mg Gabapentin (Neurontin -) 300 mg PO TID [facility] Last Admin: 11/17/16 06:13 Dose: 300 mg Heparin Sodium (Porcine) (Heparin -) 5,000 unit SQ BID [facility] Last Admin: 11/17/16 10:20 Dose: 5,000 unit IV Flush (Picc Line Flush) 8 ml IVPUSH PRN PRN PRN Reason: Protocol Ceftriaxone Sodium (Rocephin 2gm Ivpb (Pre-Docked)) 100 mls @ 200 mls/hr IVPB DAILY [facility] Last Admin: 11/17/16 10:22 Dose: 200 mls/hr Insulin Aspart (Novolog Vial Sliding Scale -) 1 vial SQ ACHS [facility] PRN Reason: Protocol Last Admin: 11/17/16 06:25 Dose: Not Given Insulin Detemir (Levemir Vial) 25 units SQ HS [facility] Last Admin: 11/16/16 21:53 Dose: 25 units Levothyroxine Sodium (Synthroid -) 100 mcg PO DAILY@0700 [facility] Last Admin: 11/17/16 06:12 Dose: 100 mcg Lisinopril (Prinivil) 2.5 mg PO DAILY [facility] Last Admin: 11/17/16 10:19 Dose: 2.5 mg Metoprolol Tartrate (Lopressor -) 12.5 mg PO BID [facility] Last Admin: 11/17/16 10:19 Dose: 12.5 mg Metronidazole (Flagyl -) 500 mg PO TID [facility] Last Admin: 11/17/16 06:11 Dose: 500 mg Oxycodone HCl (Roxicodone -) 5 mg PO Q6H PRN PRN Reason: PAIN Last Admin: 11/17/16 03:42 Dose: 5 mg Pantoprazole Sodium (Protonix -) 40 mg PO DAILY [facility] Last Admin: 11/17/16 10:19 Dose: 40 mg - Objective Vital Signs: Vital Signs Temperature 98.6 F 11/17/16 05:46 Pulse Rate 64 11/17/16 05:46 Respiratory Rate 18 11/17/16 05:46 Blood Pressure 105/61 11/17/16 05:46 O2 Sat by Pulse Oximetry (%) 97 11/16/16 21:00 Constitutional: Yes: No Distress Eyes: Yes: Conjunctiva Clear Cardiovascular: Yes: Regular Rate and Rhythm, S1, S2 Respiratory: Yes: CTA Bilaterally Gastrointestinal: Yes: Normal Bowel Sounds, Soft. No: Tenderness Extremities: Yes: Other (small area residula erythema, dorsum of foot + serous ulcer drainage) Labs: CBC, BMP 11/17/16 06:00 11/17/16 06:00 Assessment/Plan Cellulitis/ infected foot ulcer/ osteomyelitis 2nd MT Hx MRSA bacteremia/ septic arthritis of shoulder Continue ceftriaxone 2gm IVPB q24h PICC for fpc antibiotic therapy Complete 6w course of therapy
--- NOTE | 2016-11-17 11:25 | PN ---
Progress Note, Physician Chief Complaint: no complaints - Current Medication List Current Medications: Active Medications Acetaminophen (Tylenol -) 650 mg PO Q6H PRN PRN Reason: FEVER OR PAIN Last Admin: 11/17/16 03:43 Dose: 650 mg Allopurinol (Zyloprim -) 300 mg PO DAILY [facility] Last Admin: 11/17/16 10:19 Dose: 300 mg Aspirin (Asa -) 81 mg PO DAILY [facility] Last Admin: 11/17/16 10:19 Dose: 81 mg Atorvastatin Calcium (Lipitor -) 10 mg PO AM [facility] Last Admin: 11/17/16 06:11 Dose: 10 mg Collagenase (Santyl -) 1 applic TP DAILY [facility] Last Admin: 11/17/16 10:22 Dose: 1 applic Docusate Sodium (Colace -) 300 mg PO HS [facility] Last Admin: 11/16/16 21:40 Dose: 300 mg Ferrous Sulfate (Feosol -) 325 mg PO DAILY [facility] Last Admin: 11/17/16 10:19 Dose: 325 mg Furosemide (Lasix -) 20 mg PO DAILY [facility] Last Admin: 11/17/16 10:19 Dose: 20 mg Gabapentin (Neurontin -) 300 mg PO TID [facility] Last Admin: 11/17/16 06:13 Dose: 300 mg Heparin Sodium (Porcine) (Heparin -) 5,000 unit SQ BID [facility] Last Admin: 11/17/16 10:20 Dose: 5,000 unit IV Flush (Picc Line Flush) 8 ml IVPUSH PRN PRN PRN Reason: Protocol Ceftriaxone Sodium (Rocephin 2gm Ivpb (Pre-Docked)) 100 mls @ 200 mls/hr IVPB DAILY [facility] Last Admin: 11/17/16 10:22 Dose: 200 mls/hr Insulin Aspart (Novolog Vial Sliding Scale -) 1 vial SQ ACHS [facility] PRN Reason: Protocol Last Admin: 11/17/16 06:25 Dose: Not Given Insulin Detemir (Levemir Vial) 25 units SQ HS [facility] Last Admin: 11/16/16 21:53 Dose: 25 units Levothyroxine Sodium (Synthroid -) 100 mcg PO DAILY@0700 [facility] Last Admin: 11/17/16 06:12 Dose: 100 mcg Lisinopril (Prinivil) 2.5 mg PO DAILY [facility] Last Admin: 11/17/16 10:19 Dose: 2.5 mg Metoprolol Tartrate (Lopressor -) 12.5 mg PO BID [facility] Last Admin: 11/17/16 10:19 Dose: 12.5 mg Metronidazole (Flagyl -) 500 mg PO TID [facility] Last Admin: 11/17/16 06:11 Dose: 500 mg Oxycodone HCl (Roxicodone -) 5 mg PO Q6H PRN PRN Reason: PAIN Last Admin: 11/17/16 03:42 Dose: 5 mg Pantoprazole Sodium (Protonix -) 40 mg PO DAILY [facility] Last Admin: 11/17/16 10:19 Dose: 40 mg - Objective Vital Signs: Vital Signs Temperature 98.6 F 11/17/16 05:46 Pulse Rate 64 11/17/16 05:46 Respiratory Rate 18 11/17/16 05:46 Blood Pressure 105/61 11/17/16 05:46 O2 Sat by Pulse Oximetry (%) 97 11/16/16 21:00 Constitutional: Yes: Calm Cardiovascular: Yes: WNL Respiratory: Yes: WNL Gastrointestinal: Yes: WNL Wound/Incision: Yes: Dressing Dry and Intact Labs: CBC, BMP 11/17/16 06:00 11/17/16 06:00 Problem List - Problems (1) Vertigo Code(s): R42 - DIZZINESS AND GIDDINESS (2) Anemia Code(s): D64.9 - ANEMIA, UNSPECIFIED (3) Cellulitis Code(s): L03.90 - CELLULITIS, UNSPECIFIED Qualifiers: Site of cellulitis: extremity Site of cellulitis of extremity: lower extremity Laterality: left Qualified Code(s): L03.116 - Cellulitis of left lower limb (4) Osteomyelitis Code(s): M86.9 - OSTEOMYELITIS, UNSPECIFIED Qualifiers: Osteomyelitis type: other acute Osteomyelitis location: foot Laterality: left Qualified Code(s): M86.172 - Other acute osteomyelitis, left ankle and foot (5) DM2 (diabetes mellitus, type 2) Code(s): E11.9 - TYPE 2 DIABETES MELLITUS WITHOUT COMPLICATIONS Qualifiers: Diabetes mellitus complication status: with neurologic complications Diabetes mellitus complication detail: with polyneuropathy Diabetes mellitus intermediate accountant insulin use: with intermediate accountant use Qualified Code(s): E11.42 - Type 2 diabetes mellitus with diabetic polyneuropathy; Z79.4 - halfway (current) use of insulin Assessment/Plan (1) Cellulitis Code(s): L03.90 - CELLULITIS, UNSPECIFIED Qualifiers: Site of cellulitis: extremity Site of cellulitis of extremity: lower extremity Laterality: left Qualified Code(s): L03.116 - Cellulitis of left lower limb (2) Osteomyelitis Code(s): M86.9 - OSTEOMYELITIS, UNSPECIFIED Qualifiers: Osteomyelitis type: other acute Osteomyelitis location: foot Laterality: left Qualified Code(s): M86.172 - Other acute osteomyelitis, left ankle and foot (3) DM2 (diabetes mellitus, type 2) Code(s): E11.9 - TYPE 2 DIABETES MELLITUS WITHOUT COMPLICATIONS Qualifiers: Diabetes mellitus complication status: with neurologic complications Diabetes mellitus complication detail: with polyneuropathy Diabetes mellitus care home insulin use: with care home use Qualified Code(s): E11.42 - Type 2 diabetes mellitus with diabetic polyneuropathy; Z79.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
[2016-11-17] MEDS ORDERED: MECLIZINE HCL 12.5 MG TABLET PO PRN (11:29)
[2016-11-17] MEDS ORDERED: MAG HYDROX/AL HYDROX/SIMETH 30 ML UNIT-DOSE CUP PO PRN (18:55)
[2016-11-17] MEDS: DOCUSATE SODIUM 100 MG CAPSULE (FP) PO SCH (21:53)
[2016-11-17] MEDS: INSULIN DETEMIR 100 UNITS/ML MDV SQ SCH (21:55)
[2016-11-18] MEDS: INSULIN SLIDING SCALE (NOVOLOG) 1 VIAL SQ SCH ×4 (06:48→21:29)
[2016-11-18] MEDS: metroNIDAZOLE 250 MG TABLET PO SCH ×3 (06:48→21:27)
[2016-11-18] MEDS: ATORVASTATIN CA 10 MG TABLET (FP) PO SCH (06:48)
[2016-11-18] MEDS: GABAPENTIN 300 MG CAPSULE (FP) PO SCH ×3 (06:48→21:27)
[2016-11-18] MEDS: LEVOTHYROXINE NA 100 MCG TABLET (FP) PO SCH (06:48)
[2016-11-18 08:23] LABS: BASOPHIL 0.8 % (0-2.0); EOSINOPHIL 1.5 % (0-4.5); MCH 20.6 pg (25.7-33.7); MEAN CELL VOLUME 66.2 fl (80-96); MEAN PLT VOLUME 8.2 fl (7.5-11.1); NEUTROPHILS 42.2 % (42.8-82.8); PLATELET COUNT 325 K/MM3 (134-434); WHITE BLOOD COUNT 7.6 K/mm3 (4.0-10.0)
[2016-11-18 08:38] LABS: INR 1.12 (0.82-1.09); PROTHROMBIN TIME (PATIENT) 12.3 SEC (9.98-11.88)
[2016-11-18 09:01] LABS: ALBUMIN 2.9 g/dl (3.4-5.0); ANION GAP 10 (8-16); CALCIUM 8.5 mg/dL (8.5-10.1); CO2 24 mmol/L (21-32); GLUCOSE,RANDOM 100 mg/dL (74-106)
[2016-11-18 09:03] LABS: ALK PHOS 64 U/L (45-117); BILIRUBIN,TOTAL 0.2 mg/dL (0.2-1.0); CREATININE 0.9 mg/dL (0.55-1.02); SGOT/AST 15 U/L (15-37); SGPT/ALT 23 U/L (12-78); TOT PROT 6.4 g/dl (6.4-8.2)
[2016-11-18] MEDS ORDERED: PT OWN MED DRAWER 7, Y5N ONE (09:45)
[2016-11-18] MEDS: CEFTRIAXONE 100 ML IVPB SCH (10:03)
[2016-11-18] MEDS: ALLOPURINOL 300 MG TABLET (FP) PO SCH (10:04)
[2016-11-18] MEDS: LISINOPRIL 5 MG TABLET (FP) PO SCH (10:04)
[2016-11-18] MEDS: FERROUS SO4 325 MG TABLET (FP) PO SCH (10:04)
[2016-11-18] MEDS: PANTOPRAZOLE 40 MG TABLET (FP) PO SCH (10:04)
[2016-11-18] MEDS: CYANOCOBALAMIN 1,000 MCG TABLET (FP) PO SCH (10:04)
[2016-11-18] MEDS: FUROSEMIDE 20 MG TABLET (FP) PO SCH (10:04)
[2016-11-18] MEDS: HEPARIN NA (PORCINE) 5,000 UNITS/ML 1ML VIAL SQ SCH ×2 (10:04→21:28)
[2016-11-18] MEDS: METOPROLOL TARTRATE 25 MG TABLET (FP) PO SCH ×2 (10:04→21:28)
[2016-11-18] MEDS: ASPIRIN 81 MG CHEWABLE TABLETS PO SCH (10:04)
[2016-11-18] MEDS: FOLIC ACID 1 MG TABLET (FP) PO SCH (10:04)
[2016-11-18] MEDS: COLLAGENASE CLOSTRIDIUM HIST. 30 GRAMS TUBE TP SCH (10:05)
--- NOTE | 2016-11-18 10:26 | PN ---
Progress Note, Physician Chief Complaint: NO COMPLAINTS KNOWS GETTING PICC SATURDAY - Current Medication List Current Medications: Active Medications Acetaminophen (Tylenol -) 650 mg PO Q6H PRN PRN Reason: FEVER OR PAIN Last Admin: 11/17/16 12:43 Dose: 650 mg Al Hydroxide/Mg Hydroxide (Mylanta Oral Suspension -) 30 ml PO Q6H PRN PRN Reason: INDIGESTION Last Admin: 11/17/16 18:32 Dose: 30 ml Allopurinol (Zyloprim -) 300 mg PO DAILY [facility] Last Admin: 11/18/16 10:04 Dose: 300 mg Aspirin (Asa -) 81 mg PO DAILY [facility] Last Admin: 11/18/16 10:04 Dose: 81 mg Atorvastatin Calcium (Lipitor -) 10 mg PO AM [facility] Last Admin: 11/18/16 06:48 Dose: 10 mg Collagenase (Santyl -) 1 applic TP DAILY [facility] Last Admin: 11/18/16 10:05 Dose: 1 applic Cyanocobalamin (Vitamin B12 -) 1,000 mcg PO DAILY [facility] Last Admin: 11/18/16 10:04 Dose: 1,000 mcg Docusate Sodium (Colace -) 300 mg PO HS [facility] Last Admin: 11/17/16 21:53 Dose: 300 mg Ferrous Sulfate (Feosol -) 325 mg PO DAILY [facility] Last Admin: 11/18/16 10:04 Dose: 325 mg Folic Acid (Folic Acid -) 1 mg PO DAILY [facility] Last Admin: 11/18/16 10:04 Dose: 1 mg Furosemide (Lasix -) 20 mg PO DAILY [facility] Last Admin: 11/18/16 10:04 Dose: 20 mg Gabapentin (Neurontin -) 300 mg PO TID [facility] Last Admin: 11/18/16 06:48 Dose: 300 mg Heparin Sodium (Porcine) (Heparin -) 5,000 unit SQ BID [facility] Last Admin: 11/18/16 10:04 Dose: 5,000 unit IV Flush (Picc Line Flush) 8 ml IVPUSH PRN PRN PRN Reason: Protocol Ceftriaxone Sodium (Rocephin 2gm Ivpb (Pre-Docked)) 100 mls @ 200 mls/hr IVPB DAILY [facility] Last Admin: 11/18/16 10:03 Dose: 200 mls/hr Insulin Aspart (Novolog Vial Sliding Scale -) 1 vial SQ ACHS JONATAN PRN Reason: Protocol Last Admin: 11/18/16 06:48 Dose: Not Given Insulin Detemir (Levemir Vial) 25 units SQ HS [facility] Last Admin: 11/17/16 21:55 Dose: 25 units Levothyroxine Sodium (Synthroid -) 100 mcg PO DAILY@0700 [facility] Last Admin: 11/18/16 06:48 Dose: 100 mcg Lisinopril (Prinivil) 2.5 mg PO DAILY [facility] Last Admin: 11/18/16 10:04 Dose: 2.5 mg Meclizine HCl (Antivert -) 12.5 mg PO Q8H PRN PRN Reason: VERTIGO Last Admin: 11/17/16 17:04 Dose: 12.5 mg Metoprolol Tartrate (Lopressor -) 12.5 mg PO BID [facility] Last Admin: 11/18/16 10:04 Dose: 12.5 mg Metronidazole (Flagyl -) 500 mg PO TID [facility] Last Admin: 11/18/16 06:48 Dose: 500 mg Oxycodone HCl (Roxicodone -) 5 mg PO Q6H PRN PRN Reason: PAIN Last Admin: 11/17/16 03:42 Dose: 5 mg Pantoprazole Sodium (Protonix -) 40 mg PO DAILY [facility] Last Admin: 11/18/16 10:04 Dose: 40 mg - Objective Vital Signs: Vital Signs Temperature 98.5 F 11/18/16 06:00 Pulse Rate 74 11/18/16 06:00 Respiratory Rate 20 11/18/16 06:00 Blood Pressure 118/65 11/18/16 06:00 O2 Sat by Pulse Oximetry (%) 98 11/17/16 21:00 Constitutional: Yes: Calm Neck: Yes: WNL Cardiovascular: Yes: WNL Respiratory: Yes: WNL Gastrointestinal: Yes: WNL Wound/Incision: Yes: Dressing Dry and Intact Labs: CBC, BMP 11/18/16 06:30 11/18/16 06:30 INR, PTT INR 1.12 (0.82-1.09) 11/18/16 06:30 Problem List - Problems (1) Vertigo Code(s): R42 - DIZZINESS AND GIDDINESS (2) Anemia Code(s): D64.9 - ANEMIA, UNSPECIFIED (3) Cellulitis Code(s): L03.90 - CELLULITIS, UNSPECIFIED Qualifiers: Site of cellulitis: extremity Site of cellulitis of extremity: lower extremity Laterality: left Qualified Code(s): L03.116 - Cellulitis of left lower limb (4) Osteomyelitis Code(s): M86.9 - OSTEOMYELITIS, UNSPECIFIED Qualifiers: Osteomyelitis type: other acute Osteomyelitis location: foot Laterality: left Qualified Code(s): M86.172 - Other acute osteomyelitis, left ankle and foot (5) DM2 (diabetes mellitus, type 2) Code(s): E11.9 - TYPE 2 DIABETES MELLITUS WITHOUT COMPLICATIONS Qualifiers: Diabetes mellitus complication status: with neurologic complications Diabetes mellitus complication detail: with polyneuropathy Diabetes mellitus skilled nursing insulin use: 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 Qualified Code(s): E11.42 - Type 2 diabetes mellitus with diabetic polyneuropathy; Z79.4 - retirement (current) use of insulin Assessment/Plan (1) Cellulitis Code(s): L03.90 - CELLULITIS, UNSPECIFIED Qualifiers: Site of cellulitis: extremity Site of cellulitis of extremity: lower extremity Laterality: left Qualified Code(s): L03.116 - Cellulitis of left lower limb (2) Osteomyelitis Code(s): M86.9 - OSTEOMYELITIS, UNSPECIFIED Qualifiers: Osteomyelitis type: other acute Osteomyelitis location: foot Laterality: left Qualified Code(s): M86.172 - Other acute osteomyelitis, left ankle and foot (3) DM2 (diabetes mellitus, type 2) Code(s): E11.9 - TYPE 2 DIABETES MELLITUS WITHOUT COMPLICATIONS Qualifiers: Diabetes mellitus complication status: with neurologic complications Diabetes mellitus complication detail: with polyneuropathy Diabetes mellitus local company 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 truck driver 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 use: 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
[2016-11-18] MEDS ORDERED: INSULIN (NOVOLOG) ASPART 100 UNITS/ML 10ML VIAL ONE (20:56)
[2016-11-18] MEDS: DOCUSATE SODIUM 100 MG CAPSULE (FP) PO SCH (21:26)
[2016-11-18] MEDS: INSULIN DETEMIR 100 UNITS/ML MDV SQ SCH (21:28)
[2016-11-19] MEDS: ATORVASTATIN CA 10 MG TABLET (FP) PO SCH (06:29)
[2016-11-19] MEDS: GABAPENTIN 300 MG CAPSULE (FP) PO SCH ×3 (06:29→21:33)
[2016-11-19] MEDS: metroNIDAZOLE 250 MG TABLET PO SCH ×3 (06:29→21:31)
[2016-11-19] MEDS: INSULIN SLIDING SCALE (NOVOLOG) 1 VIAL SQ SCH ×4 (06:29→21:35)
[2016-11-19] MEDS: LEVOTHYROXINE NA 100 MCG TABLET (FP) PO SCH (06:30)
[2016-11-19 08:25] LABS: INR 1.15 (0.82-1.09); PROTHROMBIN TIME (PATIENT) 12.7 SEC (9.98-11.88)
[2016-11-19 08:41] LABS: BILIRUBIN,TOTAL 0.4 mg/dL (0.2-1.0); CALCIUM 8.8 mg/dL (8.5-10.1); CREATININE 1.1 mg/dL (0.55-1.02); TOT PROT 6.5 g/dl (6.4-8.2)
[2016-11-19 09:34] LABS: MCH 20.3 pg (25.7-33.7); MCHC 30.8 g/dl (32.0-36.0); MEAN CELL VOLUME 66.1 fl (80-96); MEAN PLT VOLUME 8.6 fl (7.5-11.1); PLATELET COUNT 322 K/MM3 (134-434); RDW 15.6 % (11.6-15.6); WHITE BLOOD COUNT 9.2 K/mm3 (4.0-10.0)
[2016-11-19 09:35] LABS: BASOPHIL 0.6 % (0-2.0); EOSINOPHIL 1.7 % (0-4.5); NEUTROPHILS 58.5 % (42.8-82.8)
[2016-11-19] MEDS: FOLIC ACID 1 MG TABLET (FP) PO SCH (10:41)
[2016-11-19] MEDS: FERROUS SO4 325 MG TABLET (FP) PO SCH (10:41)
[2016-11-19] MEDS: PANTOPRAZOLE 40 MG TABLET (FP) PO SCH (10:41)
[2016-11-19] MEDS: METOPROLOL TARTRATE 25 MG TABLET (FP) PO SCH ×2 (10:42→21:32)
[2016-11-19] MEDS: CYANOCOBALAMIN 1,000 MCG TABLET (FP) PO SCH (10:42)
[2016-11-19] MEDS: FUROSEMIDE 20 MG TABLET (FP) PO SCH (10:43)
[2016-11-19] MEDS: ALLOPURINOL 300 MG TABLET (FP) PO SCH (10:43)
[2016-11-19] MEDS: ASPIRIN 81 MG CHEWABLE TABLETS PO SCH (10:43)
[2016-11-19] MEDS: CEFTRIAXONE 100 ML IVPB SCH ×2 (10:44→15:39)
[2016-11-19] MEDS: LISINOPRIL 5 MG TABLET (FP) PO SCH (10:48)
[2016-11-19] MEDS: HEPARIN NA (PORCINE) 5,000 UNITS/ML 1ML VIAL SQ SCH ×2 (10:49→21:33)
--- NOTE | 2016-11-19 12:01 | PN ---
Progress Note, Physician History of Present Illness: No c/o foot pain No fever/ chills Tolerating antibiotics - Current Medication List Current Medications: Active Medications Acetaminophen (Tylenol -) 650 mg PO Q6H PRN PRN Reason: FEVER OR PAIN Last Admin: 11/17/16 12:43 Dose: 650 mg Al Hydroxide/Mg Hydroxide (Mylanta Oral Suspension -) 30 ml PO Q6H PRN PRN Reason: INDIGESTION Last Admin: 11/17/16 18:32 Dose: 30 ml Allopurinol (Zyloprim -) 300 mg PO DAILY [facility] Last Admin: 11/19/16 10:43 Dose: 300 mg Aspirin (Asa -) 81 mg PO DAILY [facility] Last Admin: 11/19/16 10:43 Dose: 81 mg Atorvastatin Calcium (Lipitor -) 10 mg PO AM [facility] Last Admin: 11/19/16 06:29 Dose: 10 mg Collagenase (Santyl -) 1 applic TP DAILY [facility] Last Admin: 11/18/16 10:05 Dose: 1 applic Cyanocobalamin (Vitamin B12 -) 1,000 mcg PO DAILY [facility] Last Admin: 11/19/16 10:42 Dose: 1,000 mcg Docusate Sodium (Colace -) 300 mg PO HS [facility] Last Admin: 11/18/16 21:26 Dose: 300 mg Ferrous Sulfate (Feosol -) 325 mg PO DAILY [facility] Last Admin: 11/19/16 10:41 Dose: 325 mg Folic Acid (Folic Acid -) 1 mg PO DAILY [facility] Last Admin: 11/19/16 10:41 Dose: 1 mg Furosemide (Lasix -) 20 mg PO DAILY [facility] Last Admin: 11/19/16 10:43 Dose: 20 mg Gabapentin (Neurontin -) 300 mg PO TID [facility] Last Admin: 11/19/16 06:29 Dose: 300 mg Heparin Sodium (Porcine) (Heparin -) 5,000 unit SQ BID [facility] Last Admin: 11/19/16 10:49 Dose: 5,000 unit IV Flush (Picc Line Flush) 8 ml IVPUSH PRN PRN PRN Reason: Protocol Ceftriaxone Sodium (Rocephin 2gm Ivpb (Pre-Docked)) 100 mls @ 200 mls/hr IVPB DAILY [facility] Last Admin: 11/19/16 10:44 Dose: Not Given Insulin Aspart (Novolog Vial Sliding Scale -) 1 vial SQ ACHS JONATAN PRN Reason: Protocol Last Admin: 11/19/16 06:29 Dose: Not Given Insulin Detemir (Levemir Vial) 25 units SQ HS [facility] Last Admin: 11/18/16 21:28 Dose: 25 units Levothyroxine Sodium (Synthroid -) 100 mcg PO DAILY@0700 [facility] Last Admin: 11/19/16 06:30 Dose: 100 mcg Lisinopril (Prinivil) 2.5 mg PO DAILY [facility] Last Admin: 11/19/16 10:48 Dose: 2.5 mg Meclizine HCl (Antivert -) 12.5 mg PO Q8H PRN PRN Reason: VERTIGO Last Admin: 11/17/16 17:04 Dose: 12.5 mg Metoprolol Tartrate (Lopressor -) 12.5 mg PO BID [facility] Last Admin: 11/19/16 10:42 Dose: 12.5 mg Metronidazole (Flagyl -) 500 mg PO TID [facility] Last Admin: 11/19/16 06:29 Dose: 500 mg Oxycodone HCl (Roxicodone -) 5 mg PO Q6H PRN PRN Reason: PAIN Last Admin: 11/17/16 03:42 Dose: 5 mg Pantoprazole Sodium (Protonix -) 40 mg PO DAILY [facility] Last Admin: 11/19/16 10:41 Dose: 40 mg - Objective Vital Signs: Vital Signs Temperature 98.5 F 11/19/16 06:07 Pulse Rate 66 11/19/16 06:07 Respiratory Rate 20 11/19/16 06:07 Blood Pressure 104/52 11/19/16 06:07 O2 Sat by Pulse Oximetry (%) 97 11/18/16 21:00 Constitutional: Yes: No Distress Eyes: Yes: Conjunctiva Clear Cardiovascular: Yes: Regular Rate and Rhythm, S1, S2 Respiratory: Yes: CTA Bilaterally Gastrointestinal: Yes: Normal Bowel Sounds, Soft. 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
[2016-11-19] MEDS: COLLAGENASE CLOSTRIDIUM HIST. 30 GRAMS TUBE TP SCH (12:05)
--- NOTE | 2016-11-19 18:21 | PN ---
Progress Note, Physician Chief Complaint: had d/w patient & family member (translated on phone) - Current Medication List Current Medications: Active Medications Acetaminophen (Tylenol -) 650 mg PO Q6H PRN PRN Reason: FEVER OR PAIN Last Admin: 11/17/16 12:43 Dose: 650 mg Al Hydroxide/Mg Hydroxide (Mylanta Oral Suspension -) 30 ml PO Q6H PRN PRN Reason: INDIGESTION Last Admin: 11/17/16 18:32 Dose: 30 ml Allopurinol (Zyloprim -) 300 mg PO DAILY [facility] Last Admin: 11/19/16 10:43 Dose: 300 mg Aspirin (Asa -) 81 mg PO DAILY [facility] Last Admin: 11/19/16 10:43 Dose: 81 mg Atorvastatin Calcium (Lipitor -) 10 mg PO AM [facility] Last Admin: 11/19/16 06:29 Dose: 10 mg Collagenase (Santyl -) 1 applic TP DAILY [facility] Last Admin: 11/19/16 12:05 Dose: 1 applic Cyanocobalamin (Vitamin B12 -) 1,000 mcg PO DAILY [facility] Last Admin: 11/19/16 10:42 Dose: 1,000 mcg Docusate Sodium (Colace -) 300 mg PO HS [facility] Last Admin: 11/18/16 21:26 Dose: 300 mg Ferrous Sulfate (Feosol -) 325 mg PO DAILY [facility] Last Admin: 11/19/16 10:41 Dose: 325 mg Folic Acid (Folic Acid -) 1 mg PO DAILY [facility] Last Admin: 11/19/16 10:41 Dose: 1 mg Furosemide (Lasix -) 20 mg PO DAILY [facility] Last Admin: 11/19/16 10:43 Dose: 20 mg Gabapentin (Neurontin -) 300 mg PO TID [facility] Last Admin: 11/19/16 14:42 Dose: 300 mg Heparin Sodium (Porcine) (Heparin -) 5,000 unit SQ BID [facility] Last Admin: 11/19/16 10:49 Dose: 5,000 unit IV Flush (Picc Line Flush) 8 ml IVPUSH PRN PRN PRN Reason: Protocol Ceftriaxone Sodium (Rocephin 2gm Ivpb (Pre-Docked)) 100 mls @ 200 mls/hr IVPB DAILY [facility] Last Admin: 11/19/16 15:39 Dose: 200 mls/hr Insulin Aspart (Novolog Vial Sliding Scale -) 1 vial SQ ACHS JONATAN PRN Reason: Protocol Last Admin: 11/19/16 17:40 Dose: Not Given Insulin Detemir (Levemir Vial) 25 units SQ HS [facility] Last Admin: 11/18/16 21:28 Dose: 25 units Levothyroxine Sodium (Synthroid -) 100 mcg PO DAILY@0700 [facility] Last Admin: 11/19/16 06:30 Dose: 100 mcg Lisinopril (Prinivil) 2.5 mg PO DAILY [facility] Last Admin: 11/19/16 10:48 Dose: 2.5 mg Meclizine HCl (Antivert -) 12.5 mg PO Q8H PRN PRN Reason: VERTIGO Last Admin: 11/17/16 17:04 Dose: 12.5 mg Metoprolol Tartrate (Lopressor -) 12.5 mg PO BID [facility] Last Admin: 11/19/16 10:42 Dose: 12.5 mg Metronidazole (Flagyl -) 500 mg PO TID [facility] Last Admin: 11/19/16 14:42 Dose: 500 mg Pantoprazole Sodium (Protonix -) 40 mg PO DAILY [facility] Last Admin: 11/19/16 10:41 Dose: 40 mg - Objective Vital Signs: Vital Signs Temperature 98.5 F 11/19/16 17:09 Pulse Rate 64 11/19/16 17:09 Respiratory Rate 20 11/19/16 17:09 Blood Pressure 88/59 11/19/16 17:09 O2 Sat by Pulse Oximetry (%) 97 11/19/16 09:00 Constitutional: Yes: Calm Neck: Yes: WNL Cardiovascular: Yes: WNL Respiratory: Yes: WNL Gastrointestinal: Yes: WNL Wound/Incision: Yes: Dressing Dry and Intact Labs: CBC, BMP 11/19/16 06:30 11/19/16 06:30 INR, PTT INR 1.15 (0.82-1.09) H 11/19/16 06:30 Problem List - Problems (1) Vertigo Code(s): R42 - DIZZINESS AND GIDDINESS (2) Anemia Code(s): D64.9 - ANEMIA, UNSPECIFIED (3) Cellulitis Code(s): L03.90 - CELLULITIS, UNSPECIFIED Qualifiers: Site of cellulitis: extremity Site of cellulitis of extremity: lower extremity Laterality: left Qualified Code(s): L03.116 - Cellulitis of left lower limb (4) Osteomyelitis Code(s): M86.9 - OSTEOMYELITIS, UNSPECIFIED Qualifiers: Osteomyelitis type: other acute Osteomyelitis location: foot Laterality: left Qualified Code(s): M86.172 - Other acute osteomyelitis, left ankle and foot (5) DM2 (diabetes mellitus, type 2) Code(s): E11.9 - TYPE 2 DIABETES MELLITUS WITHOUT COMPLICATIONS Qualifiers: Diabetes mellitus complication status: with neurologic complications Diabetes mellitus complication detail: with polyneuropathy Diabetes mellitus prison insulin use: with long term care pharmacist use Qualified Code(s): E11.42 - Type 2 diabetes mellitus with diabetic polyneuropathy; Z79.4 - alf (current) use of insulin Assessment/Plan (1) Cellulitis Code(s): L03.90 - CELLULITIS, UNSPECIFIED Qualifiers: Site of cellulitis: extremity Site of cellulitis of extremity: lower extremity Laterality: left Qualified Code(s): L03.116 - Cellulitis of left lower limb (2) Osteomyelitis Code(s): M86.9 - OSTEOMYELITIS, UNSPECIFIED Qualifiers: Osteomyelitis type: other acute Osteomyelitis location: foot Laterality: left Qualified Code(s): M86.172 - Other acute osteomyelitis, left ankle and foot (3) DM2 (diabetes mellitus, type 2) Code(s): E11.9 - TYPE 2 DIABETES MELLITUS WITHOUT COMPLICATIONS Qualifiers: Diabetes mellitus complication status: with neurologic complications Diabetes mellitus complication detail: with polyneuropathy Diabetes mellitus prison insulin use: with long term care pharmacist use Qualified Code(s): E11.42 - Type 2 diabetes mellitus with diabetic polyneuropathy; 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
[2016-11-19] MEDS ORDERED: INSULIN (NOVOLOG) ASPART 100 UNITS/ML 10ML VIAL ONE (21:30)
[2016-11-19] MEDS: DOCUSATE SODIUM 100 MG CAPSULE (FP) PO SCH (21:31)
[2016-11-19] MEDS: INSULIN DETEMIR 100 UNITS/ML MDV SQ SCH (21:34)
[2016-11-20] MEDS: metroNIDAZOLE 250 MG TABLET PO SCH ×2 (05:58→14:22)
[2016-11-20] MEDS: GABAPENTIN 300 MG CAPSULE (FP) PO SCH ×2 (05:58→14:22)
[2016-11-20] MEDS: ATORVASTATIN CA 10 MG TABLET (FP) PO SCH (06:36)
[2016-11-20] MEDS: LEVOTHYROXINE NA 100 MCG TABLET (FP) PO SCH (06:36)
[2016-11-20] MEDS: INSULIN SLIDING SCALE (NOVOLOG) 1 VIAL SQ SCH ×2 (06:36→11:42)
[2016-11-20] MEDS ORDERED: PICC LINE 8 ML FLUSH PROTOCOL IVPUSH PRN (08:03)
--- NOTE | 2016-11-20 08:11 | DS ---
Physical Examination Vital Signs: Vital Signs Temperature 98.3 F 11/20/16 07:44 Pulse Rate 64 11/20/16 07:44 Respiratory Rate 20 11/20/16 07:44 Blood Pressure 127/66 11/20/16 07:44 O2 Sat by Pulse Oximetry (%) 97 11/19/16 21:00 Findings/Remarks: nad Constitutional: Yes: No Distress Eyes: Yes: WNL HENT: Yes: WNL Neck: Yes: WNL Cardiovascular: Yes: WNL Respiratory: Yes: WNL Gastrointestinal: Yes: WNL Renal/: Yes: WNL Musculoskeletal: Yes: Muscle Weakness Extremities: Yes: Deformity Edema: No Peripheral Pulses WNL: Yes Integumentary: Yes: Other Wound/Incision: Yes: Dressing Dry and Intact, Other Neurological: Yes: Pre-Existing Deficit ...Motor Strength: LLE, RLE Psychiatric: Yes: WNL Discharge Summary Reason For Visit: CELLULITIS Current Active Problems Anemia (Acute) Cellulitis (Acute) Osteomyelitis (Acute) Tinnitus (Acute) Vertigo (Acute) Procedures: Principal: mri Other Procedures: labs cultures Hospital Course: admitted worked up for leg wound + for osteomyelitis started on 6 wk abx iv, then worked up for dizziness and started on anti-vertigo meds, snf Condition: Fair - Instructions Diet, Activity, Other Instructions: ada/low sodium/low fat Referrals: Annelise Knowles MD [Primary Care Provider] - Disposition: [facility] - Home Medications Comprehensive Discharge Medication List: Ambulatory Orders Allopurinol 300 mg PO DAILY 01/10/16 Aspirin [Aspirin EC] 81 mg PO DAILY 01/10/16 Furosemide [Lasix -] 20 mg PO DAILY 01/10/16 Lisinopril 5 mg PO DAILY 01/10/16 Metoprolol Tartrate 12.5 mg PO BID 01/10/16 Multivitamins [Multivit ([facility] Formulary)] 1 tab PO DAILY 01/10/16 Pravastatin Sodium 20 mg PO DAILY 01/10/16 Oxycodone HCl/Acetaminophen [Percocet 10-325 mg Tablet] 1 each PO QID #20 tablet MDD 4 03/18/16 Acetaminophen [Tylenol .Regular Strength -] 650 mg PO Q6H PRN #0 tablet Docusate Sodium [Colace -] 100 mg PO BID PRN #0 capsule 03/28/16 Gabapentin [Neurontin -] 300 mg PO TID capsule 03/28/16 Insulin Sliding Scale [Novolog Vial Sliding Scale -] 1 vial SQ TIDAC #0 units Levothyroxine [Synthroid -] 100 mcg PO DAILY@0700 tablet 03/28/16 Naproxen [Naprosyn -] 500 mg PO BID tablet 03/28/16 Pantoprazole Sodium [Protonix -] 40 mg PO DAILY tablet.ec 03/28/16 Insulin (Levemir) [Levemir Vial] 25 units SQ ACBK 11/12/16 Acetaminophen [Tylenol .Regular Strength -] 650 mg PO Q6H PRN #0 tablet Allopurinol [Zyloprim -] 300 mg PO DAILY tablet 11/20/16 Aspirin [ASA -] 81 mg PO DAILY tab.chew 11/20/16 Atorvastatin Ca [Lipitor] 10 mg PO AM tablet 11/20/16 Ceftriaxone [Rocephin 2Gm Ivpb (Pre-Docked)] 100 ml IVPB DAILY bag 11/20/16 Collagenase Clostridium Hist. [Santyl -] 1 applic TP DAILY tube 11/20/16 Cyanocobalamin [Vitamin B12 -] 1,000 mcg PO DAILY tablet 11/20/16 Furosemide [Lasix -] 20 mg PO DAILY tablet 11/20/16 Heparin - 5,000 unit SQ BID vial 11/20/16 Insulin (Levemir) [Levemir Vial] 25 units SQ HS ml 11/20/16 Insulin Sliding Scale [Novolog Vial Sliding Scale -] 1 vial SQ ACHS units 11/20 Levothyroxine [Synthroid -] 100 mcg PO DAILY@0700 tablet 11/20/16 Lisinopril [Prinivil] 2.5 mg PO DAILY tablet 11/20/16 Meclizine HCl [Antivert -] 12.5 mg PO Q8H PRN #0 tablet 11/20/16 Metoprolol Tartrate [Lopressor -] 12.5 mg PO BID tablet 11/20/16 Metronidazole [Flagyl -] 500 mg PO TID 35 Days 11/20/16 Oxycodone HCl [Roxicodone -] 5 mg PO Q6H PRN #0 tablet MDD 4 11/20/16
[2016-11-20 09:31] LABS: MCH 20.1 pg (25.7-33.7); MCHC 30.5 g/dl (32.0-36.0); MEAN CELL VOLUME 66.1 fl (80-96); MEAN PLT VOLUME 8.6 fl (7.5-11.1); PLATELET COUNT 307 K/MM3 (134-434); RDW 15.9 % (11.6-15.6); WHITE BLOOD COUNT 9.9 K/mm3 (4.0-10.0)
[2016-11-20 09:36] LABS: ALBUMIN 3.1 g/dl (3.4-5.0); ALK PHOS 65 U/L (45-117); BILIRUBIN,TOTAL 0.2 mg/dL (0.2-1.0); CALCIUM 8.8 mg/dL (8.5-10.1); CREATININE 0.9 mg/dL (0.55-1.02); GLUCOSE,RANDOM 97 mg/dL (74-106); SGOT/AST 15 U/L (15-37); SGPT/ALT 19 U/L (12-78); TOT PROT 6.4 g/dl (6.4-8.2)
[2016-11-20 09:48] LABS: ANION GAP 13 (8-16); CO2 24 mmol/L (21-32)
[2016-11-20] MEDS: LISINOPRIL 5 MG TABLET (FP) PO SCH (11:27)
[2016-11-20] MEDS: FERROUS SO4 325 MG TABLET (FP) PO SCH (11:27)
[2016-11-20] MEDS: METOPROLOL TARTRATE 25 MG TABLET (FP) PO SCH (11:27)
[2016-11-20] MEDS: CEFTRIAXONE 100 ML IVPB SCH (11:27)
[2016-11-20] MEDS: PANTOPRAZOLE 40 MG TABLET (FP) PO SCH (11:27)
[2016-11-20] MEDS: ASPIRIN 81 MG CHEWABLE TABLETS PO SCH (11:28)
[2016-11-20] MEDS: CYANOCOBALAMIN 1,000 MCG TABLET (FP) PO SCH (11:28)
[2016-11-20] MEDS: FUROSEMIDE 20 MG TABLET (FP) PO SCH (11:28)
[2016-11-20] MEDS: FOLIC ACID 1 MG TABLET (FP) PO SCH (11:28)
[2016-11-20] MEDS: ALLOPURINOL 300 MG TABLET (FP) PO SCH (11:28)
[2016-11-20] MEDS: COLLAGENASE CLOSTRIDIUM HIST. 30 GRAMS TUBE TP SCH (11:29)
[2016-11-20 12:56] LABS: PLATELET ESTIMATE ADEQUATE (NORMAL)
[2016-11-20 14:04] VITALS: BP 95/63; TEMP 98.8
[2016-11-20 15:23] VITALS: PULSE 77
== END 2016-11-20 16:12 | DRG 344 ==
LOC: JER 12:06 → JERBED 14:30 → J8W 18:25
PROVIDERS: ADMIT Family Medicine; ATTEND Family Medicine
PROC: 02HV33Z Insertion of Infusion Device into Superior Vena Cava, Percutaneous Approach (ICD-10-PCS; principal; 2016-11-20)
PROC: B5181ZA Fluoroscopy of Superior Vena Cava using Low Osmolar Contrast, Guidance (ICD-10-PCS; 2016-11-20)
DX: E11.69 Type 2 diabetes mellitus with other specified complication (principal); M86.172 Other acute osteomyelitis, left ankle and foot; B95.4 Other streptococcus as the cause of diseases classified elsewhere; E11.319 Type 2 diabetes mellitus with unspecified diabetic retinopathy without macular edema; E11.40 Type 2 diabetes mellitus with diabetic neuropathy, unspecified; Z79.4 Long term (current) use of insulin; I10 Essential (primary) hypertension; L03.116 Cellulitis of left lower limb; R42 Dizziness and giddiness; E78.5 Hyperlipidemia, unspecified; H93.19 Tinnitus, unspecified ear; D64.9 Anemia, unspecified
CPT/HCPCS: 36415; 36569; 70450-TC; 70544-TC; 70551-TC; 71010-TC; 73630-TC-LT; 73718-TC; 77001-TC; 80048; 80053; 80061; 81003; 81015; 82272; 82607; 82746; 83036; 83540; 83550; 83721; 85025; 85027; 85610; 85651; 86140; 87040; 87070; 87186; 87205; 93005; 93010; 93225; 93226; 97116-GP; 97161-GP; 99284-25; C1751; J1644

== ENCOUNTER 2019-02-25 21:48 | Emergency (ER) | payer OTHER ==
[2019-02-25] MEDS ORDERED: CYCLOBENZAPRINE HCL 5 MG TABLET PO STA (21:52)
[2019-02-25] MEDS ORDERED: KETOROLAC TROMETHAMINE 60 MG/2 ML VIAL IM ONE (21:52)
--- NOTE | 2019-02-25 21:58 | PDOC ---
Documentation entered by Janice Donato SCRIBE, acting as scribe for Agustín Cunha MD. Agustín Cunha MD: This documentation has been prepared by the scribe, Janice Donato SCRIBE, under my direction and personally reviewed by me in its entirety. I confirm that the documentation accurately reflects all work , treatment, procedures, and medical decision making performed by me. History of Present Illness - General Chief Complaint: Pain, Acute Stated Complaint: LEFT BUTTOCKS PAIN RADIATING DOWN LEG History Source: Patient, Family Exam Limitations: No Limitations - History of Present Illness Initial Comments: 02/25/19 21:50 The patient is a year-old female, with a past medical history of HTN, HLD, DM, fatty liver disease, CVA, who presents to the ED with sciatica pain that began this morning. The patient states that the pain radiates from her LT lower back down her LT leg. Daughter reports that the patient has experienced similar symptoms in the past and the pain usually resolves with Tylenol, but the medication is not working today. The patient denies any fever, chills, nausea, vomiting, diarrhea, or abdominal pain. Denies any chest pain, palpitations or shortness of breath. Denies any dizziness, weakness, or changes in strength. PAST MEDICAL HISTORY: HTN, HLD, DM, fatty liver disease, CVA. PAST SURGICAL HISTORY: Appendectomy, LT foot surgery - 2 years ago. FAMILY HISTORY: no pertinent history HISTORY: Pt lives with family. MEDICATIONS: reviewed ALLERGIES: As per nursing notes General: No fevers or chills, no weakness, no weight loss HEENT: No change in vision. No sore throat,. No ear pain CardioVascular: No chest pain or shortness of breath Respiratory:No cough, or wheezing. Gastrointestinal: no nausea, vomiting, diarrhea or constipation, No rectal bleeding Genitourinary: No dysuria, hematuria, or frequency Musculoskeletal: (+)LT lower back pain radiating down LT leg. No joint pain or swelling Neurologic: No headache, vertigo, dizziness or loss of consciousness Psychiatric: nor depression Skin: No rashes or easy bruising Endocrine: no increased thirst or abnormal weight change Allergic: no skin or latex allergy All other systems reviewed and normal GENERAL: The patient is awake, alert, and fully oriented, in no acute distress. HEAD: Normal with no signs of trauma. EYES: Pupils equal, round and reactive to light, extraocular movements intact, sclera anicteric, conjunctiva clear. EXTREMITIES: Normal range of motion, no edema. MSK: (+)Tenderness to palpation over L5, S1 and LT sciatic notch. NEUROLOGICAL: Normal speech. PSYCH: Normal mood, normal affect. SKIN: Warm, Dry, normal turgor, no rashes or lesions noted. 02/25/19 21:56 Assessment and plan: This is a 63-year-old female who comes in complaining of sciatica. Patient has history of sciatica in the past for which she usually takes Tylenol. However she took her Tylenol and it wasn't working so she came in for evaluation. Otherwise patient denies any other complaints. Patient said that the radiation is from her back down to her mid thigh. Patient given Toradol here in the ED along was Flexeril and discharged home. Prescriptions for naproxen and Flexeril were sent to patient's pharmacy. Past History - Past Medical History Allergies/Adverse Reactions: Allergies Allergy/AdvReac Type Severity Reaction Status Date / Time No Known Drug Allergies Allergy Verified 02/25/19 21:50 Home Medications: Ambulatory Orders Allopurinol 300 mg PO DAILY 01/10/16 Furosemide [Lasix -] 20 mg PO DAILY 01/10/16 Lisinopril 5 mg PO DAILY 01/10/16 Multivitamins [Multivit ([facility] Formul[facility])] 1 tab PO DAILY 01/10/16 Pravastatin Sodium 20 mg PO DAILY 01/10/16 Acetaminophen [Tylenol .Regular Strength -] 650 mg PO Q6H PRN #0 tablet Docusate Sodium [Colace -] 100 mg PO BID PRN #0 capsule 03/28/16 Gabapentin [Neurontin -] 300 mg PO TID capsule 03/28/16 Insulin Sliding Scale [Novolog Vial Sliding Scale -] 1 vial SQ TIDAC #0 units Levothyroxine [Synthroid -] 100 mcg PO DAILY@0700 tablet 03/28/16 Naproxen [Naprosyn -] 500 mg PO BID tablet 03/28/16 Pantoprazole Sodium [Protonix -] 40 mg PO DAILY tablet.ec 03/28/16 Insulin (Levemir) [Levemir Vial] 25 units SQ ACBK 11/12/16 Allopurinol [Zyloprim -] 300 mg PO DAILY tablet 11/20/16 Aspirin [ASA -] 81 mg PO DAILY tab.chew 11/20/16 Atorvastatin Ca [Lipitor] 10 mg PO AM tablet 11/20/16 Ceftriaxone [Rocephin 2Gm Ivpb (Pre-Docked)] 100 ml IVPB DAILY bag 11/20/16 Collagenase Clostridium Hist. [Santyl -] 1 applic TP DAILY tube 11/20/16 Cyanocobalamin [Vitamin B12 -] 1,000 mcg PO DAILY tablet 11/20/16 Heparin - 5,000 unit SQ BID vial 11/20/16 Insulin (Levemir) [Levemir Vial] 25 units SQ HS ml 11/20/16 Insulin Sliding Scale [Novolog Vial Sliding Scale -] 1 vial SQ ACHS units 11/20 Levothyroxine [Synthroid -] 100 mcg PO DAILY@0700 tablet 11/20/16 Lisinopril [Prinivil] 2.5 mg PO DAILY tablet 11/20/16 Meclizine HCl [Antivert -] 12.5 mg PO Q8H PRN #0 tablet 11/20/16 Metoprolol Tartrate [Lopressor -] 12.5 mg PO BID tablet 11/20/16 Picc Line Flush [Picc Line Flush -] 8 ml IVPUSH PRN PRN #0 ml 11/20/16 metroNIDAZOLE [Flagyl -] 500 mg PO TID 35 Days tablet 11/20/16 oxyCODONE HCL [Roxicodone -] 5 mg PO Q6H PRN #0 tablet MDD 4 11/20/16 Gentamicin 0.1% Ointment [Garamycin 0.1% Ointment -] 1 applic TP BID #1 tube Gentamicin 0.1% Ointment [Garamycin 0.1% Ointment -] 1 applic TP DAILY #1 tube 05/03/17 Cyclobenzaprine HCl [Flexeril 10 mg] 10 mg PO HS #14 tablet 02/25/19 Naproxen [Naprosyn] 500 mg PO BID #28 tablet 02/25/19 Anemia: No CVA: Yes Diabetes: Yes HTN: Yes Hypercholesterolemia: Yes Liver Disease: Yes (Fatty liver) Thyroid Disease: Yes - Surgical History Appendectomy: Yes Orthopedic Surgery: Yes (left foot sx 2 yrs ago) - Immunization History Immunization Up to Date: Yes - Suicide/Smoking/Psychosocial Hx Smoking Status: No Smoking History: Never smoked Have you smoked in the past 12 months: No Number of Cigarettes Smoked Daily: 0 Cigars Per Day: 0 Hx Alcohol Use: No Drug/Substance Use Hx: No Substance Use Type: None Hx Substance Use Treatment: No *Physical Exam - Vital Signs Last Vital Signs Temp Pulse Resp BP Pulse Ox 98.2 F 74 18 121/67 99 02/25/19 21:51 02/25/19 21:51 02/25/19 21:51 02/25/19 21:51 02/25/19 21:51 *DC/Admit/Observation/Transfer Diagnosis at time of Disposition: Sciatica Qualifiers: Laterality: left Qualified Code(s): M54.32 - Sciatica, left side - Discharge Dispostion Disposition: HOME Condition at time of disposition: Stable Decision to Admit order: No - Prescriptions Prescriptions: Cyclobenzaprine HCl [Flexeril 10 mg] 10 mg PO HS #14 tablet Naproxen [Naprosyn] 500 mg PO BID #28 tablet - Referrals - Patient Instructions Additional Instructions: For the pain take naproxen 1 tablet twice a day with food don't take on an empty stomach.. In addition to that for muscle spasm and happy seeming night take Flexeril one tablet before bed. I sent prescriptions for the naproxen and Flexeril to your pharmacy. Return to the emergency department immediately with ANY new, persistent or worsening symptoms. Continue any medications as previously prescribed by your physician. You should follow up with your primary doctor as soon as possible regarding today's emergency department visit. . Please make sure your doctor reviews the results of your emergency evaluation. Thank you for coming to the Emergency Department today for your care. It was a pleasure to see you today. Please note that your evaluation is INCOMPLETE until you follow-up with your doctor. - Post Discharge Activity
[2019-02-25 22:01] VITALS: BP 121/67; PULSE 74; TEMP 98.2; BMI 33.3
[2019-02-25] MEDS ORDERED: CYCLOBENZAPRINE HCL 10 MG TABLET (FP) ONE (22:02)
[2019-02-25] MEDS ORDERED: KETOROLAC TROMETHAMINE 60 MG/2 ML VIAL ONE (22:02)
== END 2019-02-25 22:10 | disposition home or self-care (01) ==
LOC: FER 21:48
PROC: 3E0233Z Introduction of Anti-inflammatory into Muscle, Percutaneous Approach (ICD-10-PCS; principal; 2019-02-25)
DX: M54.32 Sciatica, left side (principal); K76.0 Fatty (change of) liver, not elsewhere classified; E11.9 Type 2 diabetes mellitus without complications; I10 Essential (primary) hypertension; E78.00 Pure hypercholesterolemia, unspecified; E07.9 Disorder of thyroid, unspecified; Z79.4 Long term (current) use of insulin
CPT/HCPCS: 99281-25